=== PATIENT | male | born 1965 | race Caucasian/White ===

== ENCOUNTER 2016-04-13 18:16 | Emergency (ER) | payer OTHER ==
[~2016-04-13] VITALS: Ht 171.4 cm; Wt 93.0 kg
[~2016-04-13 18:16] MED LIST: AMLODIPINE10 MG PO; ATIVAN1 MG PO; KEFLEX500 M1 PO; LOSARTAN POTASS50 MG PO; METOPROLOL SUCC25 MG PO; MULTIVITAMIN1 TAB PO; NAPROSYN500 M1 PO; OMEPRAZOLE40 MG PO; VIBRAMYCIN 100100 MG PO; VITAMIN D35000 UNIT PO; VITAMIN D50000 IU PO; ZOFRAN ODT4 MG SL; ZOFRAN4 M1 PO
--- NOTE | 2016-04-13 19:57 | ED PSYCHIATRIC COMPLAINT ---
See Addendum History of Present Illness General Chief Complaint: ETOH/Drug Related Complaint Stated Complaint: DETOX Source: patient Exam Limitations: no limitations Vital Signs & Intake/Output Vital Signs & Intake/Output Vital Signs Date Time Temp Pulse Resp B/P Pulse O2 O2 Flow FiO2 Ox Delivery Rate 04/14 842 99.1 119 18 181/106 04/14 0843 99.1 119 18 181/106 04/14 0843 99.1 119 18 181/106 04/14 0810 99.1 119 18 181/106 99 Room Air 04/13 2347 97.9 98 18 148/89 04/13 2347 97.9 98 18 148/89 97 Room Air 04/13 2148 99.7 100 20 155/83 95 Room Air 04/13 2147 99.7 100 20 155/83 /08 1947 97.8 107 20 121/79 /08 1946 Room Air / 1841 97.8 107 20 121/79 95 Room Air ED Intake and Output 04/14 0000 04/13 1200 Intake Total 200 Output Total Balance 200 Intake, Oral 200 Patient 205 lb Weight Allergies Coded Allergies: NO KNOWN ALLERGIES (04/13/16) Reconcile Medications Amlodipine Besylate (Amlodipine) 10 MG TABLET 1 TAB PO DAILY BP (Reported) Doxepin HCl 10 MG CAPSULE 1 CAP PO QPM PSYCHIATRIC MED (Reported) Ergocalciferol (Vitamin D2) (Vitamin D2) 50,000 UNIT CAPSULE 1 CAP PO Q168 VITAMIN REPLACEMENT (Reported) Esomeprazole (Nexium) 40 MG CAPSULE.DR 1 CAP PO DAILY GERD (Reported) Halcinonide (Halog) 0.1 % CREAM..G. 1 AMBAR TOP BID PSORIASIS (Reported) Losartan Potassium 50 MG TABLET 1 TAB PO DAILY BP (Reported) Metoprolol Succinate 25 MG TAB.ER.24H 1 TAB PO DAILY BP (Reported) Naproxen (Naprosyn) 500 MG TABLET 1 TAB PO BID PRN PAIN Nystatin 100,000 UNIT/GRAM CREAM..G. 1 AMBAR TOP BID PSORIASIS (Reported) apply to affected area(s) Triamcinolone Acetonide 0.1 % CREAM..G. 1 APPLIC TOP BID PSORIASIS (Reported) Triage Note: TRIAGE: PT TO ER WITH FATHER C/C REQUESTING DETOX FROM ETOH. 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 DENIES HX OF WITHDRAWAL SEIZURES, STATES GETS SHAKES. DENIES OTHER SUBSTANCE USE/ABUSE, STATES "THE PARTNER I WAS WITH SMOKED MARAJUANA BUT I DON'T". -SI/HI. CALM/COOPERATIVE AT TRIAGE. AVOIDS EYE CONTACT. Triage Nurses Notes Reviewed? yes Onset: Gradual Duration: constant Timing: recent history Severity: severe Severity Numbers: 10 HPI: Patient is a 50-year-old male with a past medical history of alcohol dependency, hypertension, anxiety and GERD who presents emergency room with requests of alcohol detoxification. Patient's last detoxication was in [place] last year and is patient has been evaluated and admitted multiple occasions for detox patient. Denies any history of alcohol withdrawal seizures or delirium tremens Patient states that today he drank 3 of alcohol and a pint of vodka. Patient states that he drinks every day 1/5 OF vodka States that he smoked marijuana in the last month however denies any other illicit drugs. Denies any illness. Denies any fever, chills, abdominal pain nausea vomiting or auditory visual hallucinations. Patient denies any homicidal or suicidal ideations however does state that he is feeling depressed due to patient's alcohol dependency and states that he may be kicked out of his current residency due to not paying the rent. Patient currently is unemployed. (HANDY ABREU) Past History Travel History Traveled to [place] past 21 day No Medical History Any Pertinent Medical History? 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 No (HANDY ABREU) Review of Systems Review of Systems Constitutional: Reports: no symptoms. EENTM: Reports: no symptoms. Respiratory: Reports: no symptoms. Cardiovascular: Reports: no symptoms. GI: Reports: no symptoms. Genitourinary: Reports: no symptoms. Musculoskeletal: Reports: no symptoms. Skin: Reports: no symptoms. Neurological/Psychological: Reports: see HPI. Hematologic/Endocrine: Reports: no symptoms. Immunologic/Allergic: Reports: no symptoms. All Other Systems: Reviewed and Negative (HANDY ABREU) Physical Exam Physical Exam General Appearance: intoxicated Neurological/Psychiatric: no motor/sensory deficits Appearance/Memory/Insight: appropriate appearance, appropriate insight Behavoir/Eye Contact/Speech: cooperative, normal speech, good eye contact Thoughts/Hallucinations: no apparent hallucination Comments: HEENT: Normal EENT exam, Neck: Supple, no lymphadenopathy, normal range of motion without pain or tenderness Back: Nontender, no CVA tenderness. Cardiovascular: Regular rate and rhythms no murmurs rubs or gallops, normal JVP Respiratory: Chest nontender. No respiratory distress.breath sounds clear to auscultation bilaterally Abdomen: Soft, nontender nondistended, no appreciable organomegaly. Normal bowel sounds. No ascites Extremity: No edema, no calf tenderness to palpation, normal and equal pulses. Neuro: Alert oriented x3, motor sensory normal, Skin: No appreciable rash on exposed skin, skin is warm and dry. Psych: Mood and affect is normal, memory and judgment is normal. SAD PERSONS Done? patient not suicidal (HANDY ABREU) Progress Differential Diagnosis: drug intoxication, drug overdose, drug withdrawal, electrolyte abnormality, encephalitis, hypoglycemia, hypothyroidism, IC hem/mass /tumor, meningitis Plan of Care: Orders Procedure Date/time Status Regular Diet 04/14 B Active CASE MANAGEMENT CONSULT 04/14 601 Active Pathway - chart 04/14 408 Active CIWA 04/13 1953 Active URINE DRUG SCREEN FOR ER ONLY 04/13 1953 Complete URINALYSIS 04/13 1953 Complete LIPASE 04/13 1953 Complete ETHANOL 04/13 1953 Complete COMPREHENSIVE METABOLIC PANEL 04/13 1953 Complete CBC WITHOUT DIFFERENTIAL 04/13 1953 Complete AMYLASE 04/13 1953 Complete Current Medications Sig/Den Start time Last Medication Dose Stop Time Status Admin Lorazepam 2 MG Q2P PRN 04/14 414 AC (Ativan) Lorazepam 1 MG Q2P PRN 04/14 414 AC (Ativan) Laboratory Tests 04/14/16 0119: Serum Alcohol Cancelled 04/13/16 2133: Urine Opiates Screen < 100.00, Methadone Screen < 40, Barbiturate Screen < 60, Ur Phencyclidine Scrn < 6.00, Amphetamines Screen < 100, U Benzodiazepines Scrn < 85, Urine Cocaine Screen < 50, Urine Cannabis Screen 59.00 H, Urine Color YEL , Urine Clarity CLEAR, Urine pH 6.0, Ur Specific [place] 1.025, Urine Protein NEG, Urine Ketones NEG, Urine Nitrite NEG, Urine Bilirubin NEG, Urine Urobilinogen 0.2, Ur Leukocyte Esterase NEG, Ur Microscopic EXAM NOT REQUIRED, Urine Hemoglobin NEG, Urine Glucose NEG 04/13/16 2015: Anion Gap 14, Estimated GFR > 60, BUN/Creatinine Ratio 13.8, Glucose 115 H, Calcium 8.4, Total Bilirubin 0.4, AST 158 H, ALT 111 H, Alkaline Phosphatase 65, Total Protein 6.9, Albumin 3.8, Globulin 3.1, Albumin/Globulin Ratio 1.2, Amylase 55, Lipase 165, CBC w Diff NO MAN DIFF REQ, RBC 4.51 L, MCV 90.8, MCH 31.1 H, RDW 14.8 H, MPV 7.9, Gran % 49.8, Lymphocytes % 36.9, Monocytes % 11.8 H, Eosinophils % 1.1, Basophils % 0.4, Absolute Granulocytes 1.6, Absolute Lymphocytes 1.2, Absolute Monocytes 0.4, Absolute Eosinophils 0, Absolute Basophils 0, PUBS MCHC 34.3, Serum Alcohol 249.0 Patient currently is in no apparent distress denies any suicide or homicidal ideation however his alcohol levels are 250 it was noted by me that CIWA on multiple occasion patient only scored a 1 however approximately 0200 patient will be clinically sober and be reevaluated Discussed handOFF WITH Dr. Winter WHO IS aware (HANDY ABREU) Hand-Off Endorsed To: YUSRA WINTER MD Endorsed Time: 011 (HANDY ABREU) Hand-Off Endorsed To: HAMLET PAYTON DO Endorsed Time: 0700 Pending: consult (YUSRA WINTER MD) Departure Departure Disposition: STILL A PATIENT Condition: Stable Clinical Impression Primary Impression: Alcohol dependence Referrals: SCOTT JORGENSEN,RICKEY Stallworth (PCP/Family) Departure Forms: Customer Survey General Discharge Information (HANDY ABREU) Departure Comments 04/14/16, 6am.... pt feels tremulous, nauseaus, h/o in patient detox. Pt would like to be evaluated by case management for detox. (EVELINA JORGENSEN,YUSRA Nick) Departure Comments 04/14/16 9 AM The patient was signed out to me by Dr. Winter at 7 AM. He is requesting help with alcohol detox. He does have a significant history of high blood pressure and has been hypertensive and tachycardic. CIWA scores are being assessed. (TATA TURPIN,HAMLET Victoria)
[2016-04-13 20:36] LABS: ABSOLUTE BASOPHIL COUNT 0 /CUMM (0.0-0.2); ABSOLUTE EOSINOPHIL COUNT 0 /CUMM (0.0-0.7); ABSOLUTE GRANULOCYTE CT 1.6 /CUMM (1.4-6.5); ABSOLUTE LYMPH COUNT 1.2 /CUMM (1.2-3.4); ABSOLUTE MONOCYTE COUNT 0.4 /CUMM (0.10-0.60); BASOPHIL % 0.4 % (0.0-2.0); EOSINOPHIL % 1.1 % (0-5); GRANULOCYTE % 49.8 % (42.2-75.2); HEMATOCRIT 40.9 % (42-52); MEAN CORPUSCULAR HGB 31.1 PG (27.0-31.0); MEAN CORPUSCULAR HGB CONC 34.3 G/DL (33.0-37.0); MEAN CORPUSCULAR VOLUME 90.8 FL (80.0-94.0); MEAN PLATELET VOLUME 7.9 FL (7.4-10.4); PLATELET COUNT 146 /CUMM (130-400); RBC DISTRIBUTION WIDTH 14.8 % (11.5-14.5); RED BLOOD CELL CT 4.51 /CUMM (4.70-6.10); WHITE BLOOD CELL COUNT 3.3 /CUMM (4.8-10.8)
[2016-04-13] MEDS ORDERED: NYSTATIN15 G1 TOP (23:23)
[2016-04-13] MEDS ORDERED: VITAMIN D250000 UNIT PO (23:23)
[2016-04-13] MEDS ORDERED: NEXIUM40 M1 PO (23:26)
[2016-04-13] MEDS ORDERED: DOXEPIN HCL10 MG PO (23:26)
[2016-04-13] MEDS ORDERED: TRIAMCINOLONE A15 G1 TOP (23:28)
[2016-04-13] MEDS ORDERED: HALOG30 GM TOP (23:29)
[2016-04-14] MEDS ORDERED: AMLODIPINE BESY10 M1 PO (17:04)
[2016-04-14] MEDS ORDERED: COZAAR50 M1 PO (17:04)
[2016-04-14] MEDS ORDERED: TOPROL XL25 M2 PO (17:04)
[2016-04-14] MEDS ORDERED: DOXEPIN HCL10 MG PO (17:04)
[2016-04-14 17:15] VITALS: BP 189/100
--- NOTE | 2016-04-14 18:25 | ED PSYCH CRISIS CONSULTATION ---
Crisis Consult Basic Assessment Date of Consult: 04/14/16 Responsible Person/Accompanied By: self/father Insurance Authorization: Insurance #1: Insurance name: RADHA Lockett C&A Phone number: Policy number: [id number] Group number: Authorization number: ED Provider: Patient's ED Provider: HAMLET PAYTON DO Primary Care Physician: Patient's PCP: RICKEY CHAVEZ MD PCP's Current Psychiatrist: none Chief Complaint: ETOH/Drug Related Complaint Patient's Quote: I've had lots of drinking issues building up. Present Illness: Pt is a 50 yo male presented to [place] [facility] last evening requesting Alcohol Detox. Pt was accompanied by his father. Pt reports a long hx of ETOH abuse and several inpatient detoxes. Pt had been detoxed at [facility] in 2010, 2012 and has had 2 more recent detoxes in [facility]. 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 Pt reports drinking has increased to a fifth of vodka/day last few months. Pt didn't meet withdrawal symptoms criteria for medical admission. Pt reports depression due to continued losses and consequences of drinking but denies si/hi. Pt is alert, engaged, OX3, with mood/affect congruent. Patient's Address: [address] [place] [address] Other Phone Number: Who Do You Live With? Other (see notes) (parents and son) Family/Informants Interviewed: father Alonso [phone] Allergies - Coded Allergies: NO KNOWN ALLERGIES (04/13/16) Current Medications - Scheduled Medications Amlodipine Besylate (Amlodipine) 10 MG TABLET 1 TAB PO DAILY BP #90 (Reported ) Entered as Reported by ISAEL PA on 04/04/14 1349 Last Taken: At an unknown date and time Amlodipine Besylate 10 MG TABLET 1 TAB PO DAILY HTN #30 TAB Prescribed by HAMLET PAYTON DO on 04/14/16 Doxepin HCl 10 MG CAPSULE 1 CAP PO QPM PSYCHIATRIC MED #30 (Reported) Entered as Reported by VIKTOR BUSTILLO on 04/13/16 2326 Ergocalciferol (Vitamin D2) (Vitamin D2) 50,000 UNIT CAPSULE 1 CAP PO Q168 VITAMIN REPLACEMENT #8 (Reported) Entered as Reported by VIKTOR BUSTILLO on 04/13/162322 Esomeprazole (Nexium) 40 MG CAPSULE.DR 1 CAP PO DAILY GERD #30 (Reported) Entered as Reported by VIKTOR BUSTILLO on 04/13/16 232 Halcinonide (Halog) 0.1 % CREAM..G. 1 AMBAR TOP BID PSORIASIS #216 (Reported) Entered as Reported by VIKTOR BUSTILLO on 04/13/16 232 Losartan Potassium 50 MG TABLET 1 TAB PO DAILY BP #90 (Reported) Entered as Reported by ISAEL PA on 04/04/14 1349 Last Taken: At an unknown date and time Losartan Potassium (Cozaar) 50 MG TABLET 1 TAB PO DAILY HTN #30 TAB Prescribed by HAMLET PAYTON DO on 04/14/16 Metoprolol Succ XL (Toprol XL) 25 MG TAB.ER.24H 1 TAB PO DAILY HTN #30 Prescribed by HAMLET PAYTON DO on 04/14/16 Metoprolol Succinate 25 MG TAB.ER.24H 1 TAB PO DAILY BP #90 (Reported) Entered as Reported by ISAEL PA on 04/04/14 1349 Last Taken: At an unknown date and time Nystatin 100,000 UNIT/GRAM CREAM..G. 1 AMBAR TOP BID PSORIASIS #30 (Reported) Entered as Reported by VIKTOR BUSTILLO on 04/13/162322 Triamcinolone Acetonide 0.1 % CREAM..G. 1 APPLIC TOP BID PSORIASIS #454 ( Reported) Entered as Reported by VIKTOR BUSTILLO on 04/13/16 232 Scheduled PRN Medications Doxepin HCl 10 MG CAPSULE 1 CAP PO QPM PRN DEPRESSION #20 CAP Prescribed by HAMLET PAYTON DO on 04/14/16 Naproxen (Naprosyn) 500 MG TABLET 1 TAB PO BID PRN PAIN #15 Prescribed by MERCY SIMS on 07/13/15 Last Taken: At an unknown date and time Laboratory Results: Laboratory Tests 04/14/16 0119: Serum Alcohol Cancelled 04/13/163: Urine Opiates Screen < 100.00, Methadone Screen < 40, Barbiturate Screen < 60, Ur Phencyclidine Scrn < 6.00, Amphetamines Screen < 100, U Benzodiazepines Scrn < 85, Urine Cocaine Screen < 50, Urine Cannabis Screen 59.00 H, Urine Color YEL , Urine Clarity CLEAR, Urine pH 6.0, Ur Specific [place] 1.025, Urine Protein NEG, Urine Ketones NEG, Urine Nitrite NEG, Urine Bilirubin NEG, Urine Urobilinogen 0.2, Ur Leukocyte Esterase NEG, Ur Microscopic EXAM NOT REQUIRED, Urine Hemoglobin NEG, Urine Glucose NEG 04/13/16 2015: Anion Gap 14, Estimated GFR > 60, BUN/Creatinine Ratio 13.8, Glucose 115 H, Calcium 8.4, Total Bilirubin 0.4, AST 158 H, ALT 111 H, Alkaline Phosphatase 65, Total Protein 6.9, Albumin 3.8, Globulin 3.1, Albumin/Globulin Ratio 1.2, Amylase 55, Lipase 165, CBC w Diff NO MAN DIFF REQ, RBC 4.51 L, MCV 90.8, MCH 31.1 H, RDW 14.8 H, MPV 7.9, Gran % 49.8, Lymphocytes % 36.9, Monocytes % 11.8 H, Eosinophils % 1.1, Basophils % 0.4, Absolute Granulocytes 1.6, Absolute Lymphocytes 1.2, Absolute Monocytes 0.4, Absolute Eosinophils 0, Absolute Basophils 0, PUBS MCHC 34.3, Serum Alcohol 249.0 Past History Past Medical History Neurological: NONE EENT: NONE Cardiovascular: hypertension Respiratory: NONE Gastrointestinal: GASTRIC AND INTESTINAL ULCER Hepatic: NONE Renal: NONE Musculoskeletal: PSORAISIS Psychiatric: NONE Endocrine: NONE Blood Disorders: NONE Cancer(s): NONE 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 Wants to stop drinking Psychiatric Treatment History Psych Treatment Psychiatric Treatment No Inpatient Treatment No Outpatient Treatment No Substance Use/Abuse History Drug Use/Abuse Substances Used/Abused Yes Substance Used/Abused Alcohol First Use 30+ yrs ago Last Used yesterday How much used/taken fifth/vodka How often daily For how long last few months Substance Abuse Treatment Substance Abuse Treatment Past Substance Abuse TX Yes Inpatient Treatment Yes Outpatient Treatment Yes Location of Treatment -[facility] 2010, 2012; Detox in [facility] outpatient Reason for Treatment Alcohol Detox Response to Treatment unable to maintain sobriety Comments: several attempts at detox since 2010 but continues to relapse. Use progressing. Current Mental Status Mental Status Orientation: Person, Place, Situation Affect: Depressed Speech: WNL Neuro-vegetative: Appetite Decreased, Energy Decreased, Helpless, Loss of Interest Appearance Appearance- Dress/Hygiene: hospital scrubs. sitting upright/feet on the floor during interview. psoriasis on arms. Face blothcy. Behaviors Thought Process: WNL Thought Content: WNL Memory: WNL Insight: Fair SI/HI Risk Assessment Past Suicidal Ideation/Attempts No Current Suicidal Ideation/Att No Past Homicidal Ideation/Att: No Current Homicidal Ideation/Attempts No Degree of Intent: None Gravely Disabled: Poor Judgment Risk Factors: SA/MH hospitalized, substance abuse, poor impulse control, male Lethality Ratin PTSD Checklist PTSD Done? 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 Pt receiving last unemployment check next week. No longer able to afford apt. Car issues. depressed. Hopeless. Denies SI/HI. Wants help to stop etoh use. Departure Disposition Psych Medical Clearance Date: 04/14/16 Medically Cleared at: 1600 Time Started: 1605 Time Ended: 1645 Psychiatrist Consulted: Uriel Garcia MD Date Disposition Established: 04/14/16 Time Disposition Established: 1700 Plan for Disposition - Modality: Inpatient Detoxification Facility: [facility] Rationale for Disposition: Pt requesting ETOH Detox. Bed opening confirmed at [facility]. Pt's father will transport pt to [facility] for admission. Referrals SCOTT JORGENSEN,RICKEY Stallworth (PCP/Family)
== END 2016-04-14 18:00 | disposition other institution (70) ==
LOC: ERH 18:16
PROVIDERS: Physician Assistant
DX: F10.20 Alcohol dependence, uncomplicated (principal)
CPT/HCPCS: 80307; 81003; G0463; G0480; J3101

== ENCOUNTER 2016-04-29 17:44 | Emergency (ER) | payer OTHER ==
[~2016-04-29] VITALS: Ht 170.2 cm; Wt 88.5 kg
[~2016-04-29 17:44] MED LIST changes: +AMLODIPINE BESY10 M1 PO; +COZAAR50 M1 PO; +DOXEPIN HCL10 MG PO; +HALOG30 GM TOP; +NEXIUM40 M1 PO; +NYSTATIN15 G1 TOP; +TOPROL XL25 M2 PO; +TRIAMCINOLONE A15 G1 TOP; +VITAMIN D250000 UNIT PO
[2016-04-29 17:51] VITALS: BP 104/67
[2016-04-29] MEDS ORDERED: PERCOCET 5-3251 EACH PO (18:15)
[2016-04-29] MEDS ORDERED: BACTRIM DS TAB1 EACH PO (18:15)
[2016-04-29] MEDS ORDERED: AMOXICILLIN500 M3 PO (18:15)
--- NOTE | 2016-04-29 18:16 | ED SKIN/ALLERGY COMPLAINT ---
History of Present Illness General Chief Complaint: Skin Rash/ Abcess Stated Complaint: ?ABCESS UNDER ARMS Source: patient Exam Limitations: no limitations Vital Signs & Intake/Output Vital Signs & Intake/Output Vital Signs Date Time Temp Pulse Resp B/P Pulse O2 O2 Flow FiO2 Ox Delivery Rate 04/29 1751 98.2 128 16 104/67 97 Room Air Allergies Coded Allergies: NO KNOWN ALLERGIES (04/13/16) Reconcile Medications Amlodipine Besylate (Amlodipine) 10 MG TABLET 1 TAB PO DAILY BP (Reported) Amlodipine Besylate 10 MG TABLET 1 TAB PO DAILY HTN Amoxicillin 500 MG TABLET 1 TAB PO TID abscess Doxepin HCl 10 MG CAPSULE 1 CAP PO QPM PSYCHIATRIC MED (Reported) Doxepin HCl 10 MG CAPSULE 1 CAP PO QPM PRN DEPRESSION Ergocalciferol (Vitamin D2) (Vitamin D2) 50,000 UNIT CAPSULE 1 CAP PO Q168 VITAMIN REPLACEMENT (Reported) Esomeprazole (Nexium) 40 MG CAPSULE.DR 1 CAP PO DAILY GERD (Reported) Halcinonide (Halog) 0.1 % CREAM..G. 1 AMBAR TOP BID PSORIASIS (Reported) Losartan Potassium 50 MG TABLET 1 TAB PO DAILY BP (Reported) Losartan Potassium (Cozaar) 50 MG TABLET 1 TAB PO DAILY HTN Metoprolol Succ XL (Toprol XL) 25 MG TAB.ER.24H 1 TAB PO DAILY HTN Metoprolol Succinate 25 MG TAB.ER.24H 1 TAB PO DAILY BP (Reported) Naproxen (Naprosyn) 500 MG TABLET 1 TAB PO BID PRN PAIN Nystatin 100,000 UNIT/GRAM CREAM..G. 1 AMBAR TOP BID PSORIASIS (Reported) apply to affected area(s) Oxycodone HCl/Acetaminophen (Percocet 5-325 MG Tablet) 5 MG-325 MG TABLET 1-2 TAB PO Q6P PRN pain Sulfamethoxazole/Trimethoprim (Bactrim Ds Tablet) 800 MG-160 MG TABLET 1 TAB PO BID abscess Triamcinolone Acetonide 0.1 % CREAM..G. 1 APPLIC TOP BID PSORIASIS (Reported) Triage Note: COMPLAINSOF ABCESS UNDER L ARM FOR THE PAST 2-3 DAYS Triage Nurses Notes Reviewed? yes Onset: Abrupt Duration: day(s):, constant, continues in ED Timing: recent history Severity: severe Possible Factors: no cause identified No Modifying Factors: none HPI: 50-year-old male comes into emergency room for evaluation of pain and swelling to left armpit. Patient reports his been going on for a couple days. Patient reports she's had this on the right side before. Pain is sharp throbbing and severe. Denies any trauma to the area. Denies any fever or chills. Denies any other associated symptoms. (FRANCISCO RIVAS) Past History Travel History Traveled to [place] past 21 day No Medical History Any Pertinent Medical History? 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 No (FRANCISCO RIVAS) Review of Systems Review of Systems Constitutional: Reports: no symptoms. EENTM: Reports: no symptoms. Respiratory: Reports: no symptoms. Cardiovascular: Reports: no symptoms. GI: Reports: no symptoms. Genitourinary: Reports: no symptoms. Musculoskeletal: Reports: no symptoms. Skin: Reports: see HPI. Neurological/Psychological: Reports: no symptoms. Hematologic/Endocrine: Reports: no symptoms. Immunologic/Allergic: Reports: no symptoms. All Other Systems: Reviewed and Negative (FRANCISCO RIVAS) Physical Exam Physical Exam General Appearance: well developed/nourished, mild distress Head: atraumatic Eyes: Bilateral: normal appearance. Ears, Nose, Throat: normal ENT inspection, hearing grossly normal Neck: normal inspection Respiratory: normal breath sounds Back: normal inspection Extremities: Swelling to left armpit, no erythema, no warmth, hard, small, Neurologic/Psych: awake, alert, oriented x 3, normal mood/affect Skin: intact Skin Problem Location: see above Lymphatic: no anterior cervical josé miguel (FRANCISCO RIVAS) Progress Differential Diagnosis: abscess/cellulitis, allergic reaction, anaphylaxis, angioedema, asthma, contact dermatitis, lymphadenitis Plan of Care: 04/29/2016 6:19:32 PM At this time it is hard to distinguish whether this is an abscess versus a swollen lymph node. It is not warm or red or hot to touch. It is painful to touch. It is too small to be drained if it were an abscess. It is firm. It could be possible lymphadenopathy in which case I do not want to cut and open it up at this time. Patient started on oral antibiotics and instructed to use hot compresses to the area and return in 3 days for a wound check. Due to unclear nature as to exactly what this is patient will be treated symptomatically with oral antibiotics and patient will follow up with primary care doctor next week and return for wound check here on Monday. (KINJAL SMITH,FRANCISCO) Departure Departure Disposition: HOME OR SELF CARE Condition: Stable Clinical Impression Primary Impression: Swollen lymph nodes Referrals: SCOTT JORGENSEN,RICKEY Stallworth (PCP/Family) Additional Instructions: Take Bactrim and amoxicillin as prescribed. Take Percocet for pain. Return in 3 days for wound check. Return sooner if any other concerns worsening symptoms. Return if any increased swelling redness discharge fever or chills. Please go over all results of today's visit with your primary care doctor. Contact your primary care doctor to let them know you were here in the emergency room. There may be nonspecific findings which may not be related to your visit today here in the emergency room but may require further evaluation and chronic monitoring by your primary care doctor. If you had a laceration today the chance of foreign body always remains. You should follow-up with your primary care doctor for recheck in 3-5 days for a wound check. If you had an x-ray done there is a chance that a fracture could have been missed on initial read and you should follow-up with your primary care doctor for repeat x-rays if symptoms persist. If your blood pressure was elevated here in the emergency room please have rechecked by her primary care doctor within the next 48 hours by your primary care doctor. If you were prescribed a narcotic here in the emergency room or any type of controlled substances you're not allowed to drive while taking this medication or operate any type of heavy machinery. Narcotics can make you feel lightheaded dizziness nausea and can cause constipation. You may need to cigar packer and picker a stool softener. Thank you for choosing emergency room. Please return to the emergency room immediately if you have any other concerns worsening of symptoms. Departure Forms: Customer Survey General Discharge Information Prescriptions: Current Visit Scripts Amoxicillin 1 TAB PO TID #30 TAB Sulfamethoxazole/Trimethoprim (Bactrim Ds Tablet) 1 TAB PO BID #20 TAB Oxycodone HCl/Acetaminophen (Percocet 5-325 MG Tablet) 1-2 TAB PO Q6P PRN pain #15 TAB (FRANCISCO RIVAS) PA/BENCH CHEMIST Co-Sign Statement Statement: ED Attending supervision documentation- [] I saw and evaluated the patient. I have also reviewed all the pertinent lab results and diagnostic results. I agree with the findings and the plan of care as documented in the PA's/BENCH CHEMIST's documentation. [X] I have reviewed the ED Record and agree with the PA's/BENCH CHEMIST's documentation. [] Additions or exceptions (if any) to the PAs/BENCH CHEMIST's note and plan are summarized below: [] (RYAN JORGENSEN,LUCIANA Kasper)
== END 2016-04-29 18:29 ==
LOC: ERH 17:44
DX: R22.32 Localized swelling, mass and lump, left upper limb (principal)

== ENCOUNTER 2016-05-02 11:48 | Emergency (ER) | payer OTHER ==
[~2016-05-02] VITALS: Ht 172.7 cm; Wt 93.0 kg
[~2016-05-02 11:48] MED LIST changes: +AMOXICILLIN500 M3 PO; +BACTRIM DS TAB1 EACH PO; +PERCOCET 5-3251 EACH PO
--- NOTE | 2016-05-02 13:12 | ED SKIN/ALLERGY COMPLAINT ---
See Addendum History of Present Illness General Chief Complaint: General Adult Stated Complaint: L ARMPIT PAIN Source: patient Exam Limitations: no limitations Vital Signs & Intake/Output Vital Signs & Intake/Output Vital Signs Date Time Temp Pulse Resp B/P Pulse O2 O2 Flow FiO2 Ox Delivery Rate 05/02 1518 78 14 140/78 98 Room Air 05/02 1150 97.9 91 20 136/81 99 Room Air ED Intake and Output 05/03 0000 05/02 1200 Intake Total 0 Output Total Balance 0 Intake, Oral 0 Patient 205 lb Weight Allergies Coded Allergies: NO KNOWN ALLERGIES (04/13/16) Reconcile Medications Amlodipine Besylate 10 MG TABLET 1 TAB PO DAILY HTN Amoxicillin 500 MG TABLET 1 TAB PO TID abscess Doxepin HCl 10 MG CAPSULE 1 CAP PO QPM PSYCHIATRIC MED (Reported) Doxepin HCl 10 MG CAPSULE 1 CAP PO QPM PRN DEPRESSION Ergocalciferol (Vitamin D2) (Vitamin D2) 50,000 UNIT CAPSULE 1 CAP PO Q168 VITAMIN REPLACEMENT (Reported) Esomeprazole (Nexium) 40 MG CAPSULE.DR 1 CAP PO DAILY GERD (Reported) Halcinonide (Halog) 0.1 % CREAM..G. 1 AMBAR TOP BID PSORIASIS (Reported) Losartan Potassium (Cozaar) 50 MG TABLET 1 TAB PO DAILY HTN Metoprolol Succ XL (Toprol XL) 25 MG TAB.ER.24H 1 TAB PO DAILY HTN Naproxen (Naprosyn) 500 MG TABLET 1 TAB PO BID PRN PAIN Nystatin 100,000 UNIT/GRAM CREAM..G. 1 AMBAR TOP BID PSORIASIS (Reported) apply to affected area(s) Oxycodone HCl/Acetaminophen (Percocet 5-325 MG Tablet) 5 MG-325 MG TABLET 1 TAB PO Q6P PRN pain Sulfamethoxazole/Trimethoprim (Bactrim Ds Tablet) 800 MG-160 MG TABLET 1 TAB PO BID abscess Triamcinolone Acetonide 0.1 % CREAM..G. 1 APPLIC TOP BID PSORIASIS (Reported) Triage Note: PT TO ED C/O ABSCESS UNDER LEFT ARM PIT. PT WAS SEEN IN ED 04/29 AND SENT HOME WITH PO ABX AND PAIN MEDS. HAS BEEN TAKING RX'S PRESCRIBED. PT STATES IT IS NOT GETTING ANY BETTER. AFEBRILE. PT IS OUT OF PAIN MEDS. Triage Nurses Notes Reviewed? yes HPI: Patient presents for left armpit pain after being seen 3 days ago. He is being treated with antibiotics but he doesn't seem to be getting any better. He has had prior episodes similar to this that needed to be drained. Patient's pain has been constant severe and getting worse. It continues here in the emergency department. It is worse with movement of the left arm and with palpation of the area. He denies any associated fever or cold symptoms. There has been no drainage from the area. Past History Travel History Traveled to [place] past 21 day No Medical History Any Pertinent Medical History? 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 No Review of Systems Review of Systems Constitutional: Reports: no symptoms. EENTM: Reports: no symptoms. Respiratory: Reports: no symptoms. Cardiovascular: Reports: no symptoms. GI: Reports: no symptoms. Genitourinary: Reports: no symptoms. Musculoskeletal: Reports: no symptoms. Skin: Reports: see HPI. Neurological/Psychological: Reports: no symptoms. Hematologic/Endocrine: Reports: no symptoms. Immunologic/Allergic: Reports: no symptoms. All Other Systems: Reviewed and Negative Physical Exam Physical Exam General Appearance: SEE BELOW Progress Differential Diagnosis: abscess/cellulitis Plan of Care: See discharge instructions Comments: 05/02/2016 2:52:38 PM I&D performed by me Departure Departure Disposition: HOME OR SELF CARE Condition: Stable Clinical Impression Primary Impression: Cutaneous abscess of axilla Qualifiers: Laterality: left Qualified Code: L02.412 - Cutaneous abscess of left axilla Secondary Impressions: Encounter for incision and drainage procedure Referrals: RICKEY CHAVEZ MD (PCP/Family) Additional Instructions: Continue your current antibiotic prescription. Add Percocet if necessary for pain. Return in 2 days to have the wick removed and the area reevaluated (you may see your primary care physician if he or she feels comfortable with this). Return if Fever or shaking chills or other concerns or worsening. Thank you for choosing the [facility] Emergency Department for your care. It was a pleasure to serve you today. Christos Park M.D. [facility] Departure Forms: Customer Survey General Discharge Information Prescriptions: Current Visit Scripts Oxycodone HCl/Acetaminophen (Percocet 5-325 MG Tablet) 1 TAB PO Q6P PRN pain #10 TAB Procedures Additional Procedures Additional Procedures: INCISION AND DRAINAGE: pATIENT'S LEFT AXILLA DRAPED AND PREPPED IN THE USUAL MANNER AND ANESTHETIZED WITH LOCAL TITRATION OF 2% LIDOCAINE. a #15 BLADE WAS USED TO INCISE AN AREA OF FLUCTUANCE WITH RELEASE OF PURULENT DRAINAGE. tHE AREA WAS IRRIGATED AND LOCULATIONS WERE FREED USING DISSECTION WITH A SCISSOR. a WICK WAS PLACED.
[2016-05-02] MEDS ORDERED: PERCOCET 5-3251 EACH PO (14:54)
[2016-05-02 15:18] VITALS: BP 140/78
== END 2016-05-02 15:15 ==
LOC: ERH 11:48
DX: L02.412 Cutaneous abscess of left axilla (principal)
CPT/HCPCS: J2001

== ENCOUNTER 2016-06-02 13:35 | Emergency (ER) | payer OTHER ==
[~2016-06-02] VITALS: Ht 170.2 cm; Wt 93.0 kg
[2016-06-02] MEDS ORDERED: PERCOCET 5-3251 EACH PO (14:56)
[2016-06-02] MEDS ORDERED: AMOXICILLIN500 M2 PO (14:56)
[2016-06-02] MEDS ORDERED: BACTRIM DS TAB1 EACH PO (14:56)
--- NOTE | 2016-06-02 14:57 | ED SKIN/ALLERGY COMPLAINT ---
History of Present Illness General Chief Complaint: Skin Rash/ Abcess Stated Complaint: "I HAVE SOMETHING IN MY LEG" Source: patient Exam Limitations: no limitations Vital Signs & Intake/Output Vital Signs & Intake/Output Vital Signs Date Time Temp Pulse Resp B/P Pulse O2 O2 Flow FiO2 Ox Delivery Rate 06/02 1508 98.4 90 18 144/87 98 Room Air Room Air 06/02 1344 98.2 120 20 153/97 97 Room Air Allergies Coded Allergies: NO KNOWN ALLERGIES (04/13/16) Reconcile Medications Amlodipine Besylate 10 MG TABLET 1 TAB PO DAILY HTN Amoxicillin 500 MG TABLET 1 TAB PO TID abscess Amoxicillin 500 MG CAPSULE 1 CAP PO TID abscess Doxepin HCl 10 MG CAPSULE 1 CAP PO QPM PSYCHIATRIC MED (Reported) Doxepin HCl 10 MG CAPSULE 1 CAP PO QPM PRN DEPRESSION Ergocalciferol (Vitamin D2) (Vitamin D2) 50,000 UNIT CAPSULE 1 CAP PO Q168 VITAMIN REPLACEMENT (Reported) Esomeprazole (Nexium) 40 MG CAPSULE.DR 1 CAP PO DAILY GERD (Reported) Halcinonide (Halog) 0.1 % CREAM..G. 1 AMBAR TOP BID PSORIASIS (Reported) Losartan Potassium (Cozaar) 50 MG TABLET 1 TAB PO DAILY HTN Metoprolol Succ XL (Toprol XL) 25 MG TAB.ER.24H 1 TAB PO DAILY HTN Naproxen (Naprosyn) 500 MG TABLET 1 TAB PO BID PRN PAIN Nystatin 100,000 UNIT/GRAM CREAM..G. 1 AMBAR TOP BID PSORIASIS (Reported) apply to affected area(s) Oxycodone HCl/Acetaminophen (Percocet 5-325 MG Tablet) 5 MG-325 MG TABLET 1 TAB PO Q6P PRN pain Oxycodone HCl/Acetaminophen (Percocet 5-325 MG Tablet) 5 MG-325 MG TABLET 1 TAB PO Q6H PRN PAIN Sulfamethoxazole/Trimethoprim (Bactrim Ds Tablet) 800 MG-160 MG TABLET 1 TAB PO BID abscess Sulfamethoxazole/Trimethoprim (Bactrim Ds Tablet) 800 MG-160 MG TABLET 1 TAB PO BID infection Triamcinolone Acetonide 0.1 % CREAM..G. 1 APPLIC TOP BID PSORIASIS (Reported) Triage Note: PT C/O "CYST" ON LEFT THIGH. UNABLE TO VISUALIZE IN TRIAGE Triage Nurses Notes Reviewed? yes HPI: Patient with complaints of a"cyst"the left proximal medial thigh region. It is getting more swollen painful red and tender. Symptoms are moderate to severe with palpation. Also pain with walking as his legs are rubbery together. He denies any fever or flulike illness. HX OF abscess in the past. no fever, or flu like illness. has surrounding redness that is spreading this am. Past History Travel History Traveled to [place] past 21 day No Medical History Any Pertinent Medical History? 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 No Review of Systems Review of Systems Constitutional: Reports: see HPI. EENTM: Reports: no symptoms. Respiratory: Reports: no symptoms. Cardiovascular: Reports: no symptoms. GI: Reports: no symptoms. Genitourinary: Reports: no symptoms. Musculoskeletal: Reports: no symptoms. Skin: Reports: see HPI. Neurological/Psychological: Reports: no symptoms. Hematologic/Endocrine: Reports: no symptoms. Immunologic/Allergic: Reports: no symptoms. All Other Systems: Reviewed and Negative Physical Exam Physical Exam General Appearance: well developed/nourished Comments: Well-developed well-nourished no apparent distress. HEENT: Atraumatic, extraocular motion intact Neck: Supple, no lymphadenopathy Back: Nontender Respiratory: No respiratory distress Extremities: No edema, full range of motion Neuro: Alert and oriented x3 Psych: Mood affect normal, normal memory normal judgment. Skin: Warm and dry, no rash on exposed skin Left medial thigh proximal aspect with fluctuant abscess with surrounding erythema warmth and exquisite tenderness. Progress Differential Diagnosis: abscess/cellulitis, allergic reaction, anaphylaxis, angioedema, asthma, contact dermatitis, drug reaction, erythema multiforme, lyme disease, meningitis/sepsis, piyriasis rosea, RMSF, scarlet fever, shingles, syphilis/gonococcemia, toxic shock syndrome, urticaria Plan of Care: Orders Procedure Date/time Status EXTREMETIES CULTURE 06/02 1455 Active Microbiology 06/02 1520 EXTREMITIE: Culture & Sensitivity - RECD 06/02 1520 EXTREMITIE: Gram Stain - RECD Comments: Antibiotics recommended. Amoxicillin and Bactrim. Culture sent. Return with worsening symptoms. Warm compresses recommended Departure Departure Disposition: HOME OR SELF CARE Condition: Stable Clinical Impression Primary Impression: Abscess of groin, left Referrals: SCOTT JORGENSEN,RICKEY Stallworth (PCP/Family) Additional Instructions: Take antibiotics as directed for infection, warm compresses and sit in a warm bath to help drain the abscess. Return in the next 2-3 days if you're feeling worsening pain, redness, swelling, fever or flulike illness Departure Forms: Customer Survey General Discharge Information Prescriptions: Current Visit Scripts Amoxicillin 1 CAP PO TID #30 CAP Sulfamethoxazole/Trimethoprim (Bactrim Ds Tablet) 1 TAB PO BID #20 TAB Oxycodone HCl/Acetaminophen (Percocet 5-325 MG Tablet) 1 TAB PO Q6H PRN PAIN #12 TAB Procedures Incision and Drainage Site: LEFT MEDIAL PROXIMAL THIGH Blade Size: 11 I & D Procedure: Yes: betadine prep, sterile drapes applied, sterile dressing applied. No: wick placed. Progress: Anesthetized with 5 mL of 2% lidocaine with epinephrine after sterile prep. 11 blade scalpel and incised the abscess and small amount of purulent discharge was expressed. This was cultured. A Madison clamp is used to break up any loculations. Wound was irrigated. Sterile dressing applied. Patient tolerated well without complications.
[2016-06-02 15:08] VITALS: BP 144/87
== END 2016-06-02 15:09 ==
LOC: ERH 13:35
DX: L02.416 Cutaneous abscess of left lower limb (principal)
CPT/HCPCS: 87070

== ENCOUNTER 2016-09-11 18:56 | Emergency (ER) | payer OTHER ==
[~2016-09-11 18:56] MED LIST changes: +AMOXICILLIN500 M2 PO
[2016-09-11] MEDS ORDERED: VALACYCLOVIR1000 MG PO (19:24)
--- NOTE | 2016-09-11 19:27 | ED PSYCHIATRIC COMPLAINT ---
History of Present Illness General Chief Complaint: Psychiatric Related Complaint Stated Complaint: VANCE SHAVER EVAL, +SI, ETOH Source: patient Exam Limitations: intoxication Vital Signs & Intake/Output Vital Signs & Intake/Output Vital Signs Date Time Temp Pulse Resp B/P B/P Pulse O2 O2 Flow FiO2 Mean Ox Delivery Rate 09/12 0911 98.8 101 18 165/89 97 09/12 0645 98.2 116 16 169/80 97 Room Air 09/12 0310 98.8 108 18 124/78 96 Room Air 09/11 1912 96 Room Air 09/11 1859 98.4 112 16 116/68 98 Room Air Allergies Coded Allergies: NO KNOWN ALLERGIES (04/13/16) Reconcile Medications Amlodipine Besylate 10 MG TABLET 1 TAB PO DAILY HTN Doxepin HCl 10 MG CAPSULE 1 CAP PO QPM PSYCHIATRIC MED (Reported) Ergocalciferol (Vitamin D2) (Vitamin D2) 50,000 UNIT CAPSULE 1 CAP PO 2XW VITAMIN REPLACEMENT (Reported) Esomeprazole (Nexium) 40 MG CAPSULE.DR 1 CAP PO DAILY GERD (Reported) Losartan Potassium (Cozaar) 50 MG TABLET 1 TAB PO DAILY HTN Metoprolol Succ XL (Toprol XL) 25 MG TAB.ER.24H 1 TAB PO DAILY HTN Naproxen (Naprosyn) 500 MG TABLET 1 TAB PO BID PRN PAIN Valacyclovir HCl (Valacyclovir) 1,000 MG TABLET 1 TAB PO TID ANTIVIRAL ( Reported) Triage Note: 51 M BIBA FROM HOME AFTER DOMESTIC DISPUTE WITH PARENTS WITH WHOM HE LIVES, WHO REPORT HE HAD MADE SUICIDAL STATEMENTS AT HOME AFTER CONSUMING 2 PINTS OF VODKA. ARRIVES WITH SLURRED SPEECH, ENDORSES MULTIPLE RECENT PSYCHOSOCIAL STRESSORS AND STATES "IT'S ALL JUST TOO MUCH." DENIES SI/HI TO THIS RN AND STATES "I HAVE NO INTENT TO TAKE MY LIFE" AND DENIES PLAN. DENIES ILLICIT DRUG USE. WANDED BY SECURITY ON ARRIVAL. Triage Nurses Notes Reviewed? yes Onset: Gradual Duration: hour(s): Timing: recent history Severity: moderate Associated Symptoms: alcohol intoxication HPI: 51 yo gentleman brought in by the police after a family altercation. He reports that he drank 1 pint of vodka today. "I am getting up there... usually 1/2 pint to 1 pint a day.... but I can stop anytime." He notes that when he stops drinking he has no withdrawal symptoms. (EVELINA JORGENSEN,YUSRA Nick) Past History Travel History Traveled to [place] past 21 day No Medical History Any Pertinent Medical History? 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 No (EVELINA JORGENSEN,YUSRA Nick) Review of Systems Review of Systems Constitutional: Reports: no symptoms. EENTM: Reports: no symptoms. Respiratory: Reports: no symptoms. Cardiovascular: Reports: no symptoms. GI: Reports: no symptoms. Genitourinary: Reports: no symptoms. Musculoskeletal: Reports: no symptoms. Skin: Reports: no symptoms. Neurological/Psychological: Reports: no symptoms. Hematologic/Endocrine: Reports: no symptoms. Immunologic/Allergic: Reports: no symptoms. All Other Systems: Reviewed and Negative (EVELINA JORGENSEN,YUSRA Nick) Physical Exam Physical Exam General Appearance: well developed/nourished, mild distress Head: atraumatic Eyes: Bilateral: PERRL, EOMI. Ears, Nose, Throat: normal pharynx Neck: normal inspection, supple, full range of motion Respiratory: normal breath sounds, chest non-tender, no respiratory distress, quiet respiration, lungs clear Cardiovascular: regular rate/rhythm Gastrointestinal: normal bowel sounds, soft, non-tender, no organomegaly Neurological/Psychiatric: no motor/sensory deficits, awake, calm Appearance/Memory/Insight: appropriate insight Behavoir/Eye Contact/Speech: cooperative Thoughts/Hallucinations: no apparent hallucination Skin: intact SAD PERSONS SAD PERSONS Response Value Male Sex? yes 1 Age <19 or >45 years? yes 1 Depression/Hopelessness? yes 2 Excessive Ethanol/Drug Use? yes 1 Rational Thinking Loss? yes 2 Single//? yes 1 Social Support? has no support 1 Total 9 SAD PERSONS Done? yes (EVELINA JORGENSEN,YUSRA Nick) Progress Differential Diagnosis: depression, si vs other. Plan of Care: Orders Procedure Date/time Status Regular Diet 09/12 B Active Continuous Observation Monitor 09/12 1900 Active Continuous Observation Monitor 09/12 1500 Active Continuous Observation Monitor 09/12 1100 Active Continuous Observation Monitor 09/12 0700 Active EKG 09/12 0239 Active Continuous Observation Monitor 09/11 1928 Active URINE DRUG SCREEN FOR ER ONLY 09/11 1928 Complete ETHANOL 09/11 1928 Complete COMPREHENSIVE METABOLIC PANEL 09/11 1928 Complete CBC WITHOUT DIFFERENTIAL 09/11 1928 Complete ED CRISIS PSYCH CONSULT 09/11 1928 Active Laboratory Tests 09/11/16 2246: Urine Opiates Screen < 100.00, Methadone Screen < 40, Barbiturate Screen < 60, Ur Phencyclidine Scrn < 6.00, Amphetamines Screen < 100, U Benzodiazepines Scrn < 85, Urine Cocaine Screen 255, Urine Cannabis Screen < 5.00 09/11/16 1440: Anion Gap 15, Estimated GFR > 60, BUN/Creatinine Ratio 10.8, Glucose 103 H, Calcium 9.0, Total Bilirubin 0.4, AST 41, ALT 42, Alkaline Phosphatase 53, Total Protein 6.9, Albumin 4.1, Globulin 2.8, Albumin/Globulin Ratio 1.5, CBC w Diff NO MAN DIFF REQ, RBC 4.93, MCV 92.8, MCH 31.0, RDW 14.3, MPV 7.6, Gran % 59.7, Lymphocytes % 30.8, Monocytes % 7.1, Eosinophils % 2.0, Basophils % 0.4, Absolute Granulocytes 3.2, Absolute Lymphocytes 1.7, Absolute Monocytes 0.4, Absolute Eosinophils 0.1, Absolute Basophils 0, PUBS MCHC 33.4, Serum Alcohol 238.0 Initial ED EKG: normal axis, normal intervals, normal p-waves, normal QRS complex, normal sinus rhythm, with background artifact Hand-Off Endorsed To: YANG MARTÍNEZ MD Endorsed Time: 699 Pending: consult (EVELINA JORGENSEN,YUSRA Nick) Comments: Cleared by psychiatry for discharge (YANG MARTÍNEZ MD) Departure Departure Disposition: STILL A PATIENT Condition: Stable Clinical Impression Primary Impression: Alcohol intoxication Secondary Impressions: Cocaine abuse Referrals: RICKEY CHAVEZ MD (PCP/Family) (YUSRA HOYT MD) Departure Time of Disposition: 1210 Additional Instructions: Follow up with the recommendations of the wine cellar worker Departure Forms: General Discharge Information (MADELINE MARTÍNEZ MDE)
[2016-09-11 19:49] LABS: ABSOLUTE BASOPHIL COUNT 0 /CUMM (0.0-0.2); ABSOLUTE EOSINOPHIL COUNT 0.1 /CUMM (0.0-0.7); ABSOLUTE GRANULOCYTE CT 3.2 /CUMM (1.4-6.5); ABSOLUTE LYMPH COUNT 1.7 /CUMM (1.2-3.4); ABSOLUTE MONOCYTE COUNT 0.4 /CUMM (0.10-0.60); BASOPHIL % 0.4 % (0.0-2.0); GRANULOCYTE % 59.7 % (42.2-75.2); HEMATOCRIT 45.8 % (42-52); MEAN CORPUSCULAR HGB CONC 33.4 G/DL (33.0-37.0); MEAN CORPUSCULAR VOLUME 92.8 FL (80.0-94.0); MEAN PLATELET VOLUME 7.6 FL (7.4-10.4); PLATELET COUNT 184 /CUMM (130-400); RBC DISTRIBUTION WIDTH 14.3 % (11.5-14.5); RED BLOOD CELL CT 4.93 /CUMM (4.70-6.10); WHITE BLOOD CELL COUNT 5.4 /CUMM (4.8-10.8)
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
[2016-09-12 12:00] VITALS: BP 158/74
== END 2016-09-12 12:46 ==
LOC: ERH 18:56
PROVIDERS: Pediatrics
DX: F10.129 Alcohol abuse with intoxication, unspecified (principal); F14.10 Cocaine abuse, uncomplicated
CPT/HCPCS: 80307; 93005; 93010; G0463; G0480

== ENCOUNTER 2017-07-17 10:49 | Inpatient (IN) | payer OTHER ==
[~2017-07-17] VITALS: Ht 171.4 cm; Wt 103.0 kg
[2017-07-17] VITALS (9 sets, daily range): BP systolic 160–184; BP diastolic 90–114
[~2017-07-17 10:49] MED LIST changes: +VALACYCLOVIR1000 MG PO
[2017-07-17] MEDS ORDERED: TRAZODONE HCL100 M1 PO (11:32)
[2017-07-17] MEDS ORDERED: VENLAFAXINE HCL50 MG PO (11:32)
[2017-07-17] MEDS ORDERED: PANTOPRAZOLE SO40 M1 PO (11:33)
[2017-07-17] MEDS ORDERED: LOPRESSOR50 M1 PO (11:34)
[2017-07-17 11:37] LABS: ABSOLUTE BASOPHIL COUNT 0 /CUMM (0.0-0.2); ABSOLUTE EOSINOPHIL COUNT 0 /CUMM (0.0-0.7); ABSOLUTE GRANULOCYTE CT 4.4 /CUMM (1.4-6.5); ABSOLUTE LYMPH COUNT 0.7 /CUMM (1.2-3.4); ABSOLUTE MONOCYTE COUNT 0.3 /CUMM (0.10-0.60); BASOPHIL % 0.3 % (0.0-2.0); EOSINOPHIL % 0.6 % (0-5); GRANULOCYTE % 80.3 % (42.2-75.2); HEMATOCRIT 48.8 % (42-52); MEAN CORPUSCULAR HGB 31.1 PG (27.0-31.0); MEAN CORPUSCULAR HGB CONC 34.5 G/DL (33.0-37.0); MEAN CORPUSCULAR VOLUME 90.1 FL (80.0-94.0); MEAN PLATELET VOLUME 7.6 FL (7.4-10.4); PLATELET COUNT 169 /CUMM (130-400); RBC DISTRIBUTION WIDTH 14.6 % (11.5-14.5); RED BLOOD CELL CT 5.42 /CUMM (4.70-6.10); WHITE BLOOD CELL COUNT 5.5 /CUMM (4.8-10.8)
--- NOTE | 2017-07-17 12:47 | ED CARDIAC/CP/PALPITATIONS ---
History of Present Illness General Chief Complaint: General Adult Stated Complaint: HIGH BP Source: patient Exam Limitations: no limitations Vital Signs & Intake/Output Vital Signs & Intake/Output Vital Signs Date Time Temp Pulse Resp B/P B/P Pulse O2 O2 Flow FiO2 Mean Ox Delivery Rate 07/17 1645 107 18 176/100 07/17 1531 111 18 180/100 07/17 1521 111 180/100 07/17 1521 111 18 180/100 96 Room Air 07/17 1445 108 18 170/106 98 Room Air 07/17 1433 111 18 174/102 07/17 1422 111 174/102 07/17 1411 98.7 111 18 174/102 96 Room Air Room Air 07/17 1206 110 160/98 07/17 1151 110 18 160/98 98 Room Air 07/17 1135 99.7 118 20 182/110 07/17 1135 98 Room Air 07/17 1054 99.7 113 15 182/110 98 Room Air Room Air Allergies Coded Allergies: No Known Allergies (07/17/17) Reconcile Medications Amlodipine Besylate 10 MG TABLET 1 TAB PO DAILY HTN Losartan Potassium (Cozaar) 50 MG TABLET 1 TAB PO DAILY HTN Metoprolol Tartrate (Lopressor) 50 MG TABLET 1 TAB PO BID HEART (Reported) Pantoprazole Sodium 40 MG TABLET.DR 1 TAB PO DAILY GI (Reported) Trazodone HCl 100 MG TABLET 1 TAB PO QPM SLEEP (Reported) Venlafaxine HCl 50 MG TABLET 1 TAB PO DAILY MENTAL HEALTH (Reported) Triage Note: PT TO ED FOR LIGHTHEADEDNESS AND SUBECTIVE HIGH BLOOD PRESSURE. PT 182/110 MANUALLY IN TRIAGE. PT DENIES CHEST PAIN, SOB, NAUSEA. PT IS A DAILY DRINKER APPROX 1 PINT OF VODKA A DAY, LAST DRINK YESTERDAY. PT APPEARS FLUSHED, DIAPHORETIC AND ANXIOUS IN TRIAGE. REPORTS SUBJECTIVE HEART RATE 140 AT HOME. 113 IN TRIAGE. Triage Nurses Notes Reviewed? yes Onset: Abrupt Duration: day(s): (1), constant, continues in ED, getting worse Timing: single episode today Quality/Severity: moderate, tightness Location: central Radiation: no radiation Activities at Onset: none Nitro Today/Relief: no nitro taken today Aspirin Today: no aspirin today Associated Symptoms: dizziness, fatigue, ANXIETY HPI: 51-year-old male past medical history of hypertension, alcohol dependence, psoriasis remembers her evaluation of elevated blood pressure. Patient states that he woke up today and felt like his blood pressure was high. He states that he felt lightheaded and dizzy and chest tightness. He states that he has felt this way in the past when his blood pressure is high. He takes all of his blood pressure medicine as directed. Last dose was today this morning. He states that the chest tightness located in the center of his chest does not radiate. Does not get worse on exertion. He also reports associated anxiety because he is going to be going to retirement next week. He states that he drinks about a pint of vodka daily his last drink was last night. He does report a history of alcohol withdrawal seizures. No drug use. No shortness of breath hemoptysis or lower extremity edema. No coughing headache or changes in vision. NO suicidal or homicidal ideation. Patient states that he does not want to be detoxed from alcohol just wants to get his blood pressure under control. (Cm Cuello) Past History Travel History Traveled to [place] past 21 day No Medical History Any Pertinent Medical History? 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 No (Cm Cuello) Review of Systems Review of Systems Constitutional: Reports: no symptoms. EENTM: Reports: no symptoms. Respiratory: Reports: no symptoms. Cardiovascular: Reports: see HPI, chest pain. GI: Reports: no symptoms. Genitourinary: Reports: no symptoms. Musculoskeletal: Reports: no symptoms. Skin: Reports: no symptoms. Neurological/Psychological: Reports: see HPI (DIZZY, LIGHTHEADED). Hematologic/Endocrine: Reports: no symptoms. Immunologic/Allergic: Reports: no symptoms. All Other Systems: Reviewed and Negative (Cm Cuello) Physical Exam Physical Exam General Appearance: well developed/nourished, no apparent distress, alert, awake , anxious, obese Head: atraumatic, normal appearance Eyes: Bilateral: normal appearance, PERRL, EOMI. Ears, Nose, Throat: normal pharynx, normal ENT inspection, hearing grossly normal Neck: normal inspection, supple, full range of motion Respiratory: normal breath sounds, chest non-tender, no respiratory distress, lungs clear Cardiovascular: regular rate/rhythm, normal peripheral pulses Peripheral Pulses: 2+ radial (R), 2+ radial (L) Gastrointestinal: soft, non-tender Back: normal inspection, normal range of motion, no vertebral tenderness Extremities: normal inspection, normal range of motion, no edema Neurologic/Psych: no motor/sensory deficits, awake, alert, oriented x 3, normal gait, normal mood/affect Skin: intact, normal color, warm/dry Lymphatic: no anterior cervical josé miguel Core Measures ACS in differential dx? No CVA/TIA Diagnosis No Sepsis Present: No Sepsis Focused Exam Completed? No (Cm Cuello) Progress Differential Diagnosis: AMI, aortic dissection, atrial fibrillation, costochondritis, hyperthyroid, musculoskeletal pain, pancreatitis, pericarditis, pneumonia, pneumothorax, PSVT, pulmonary embolism, PUD/GERD, PVCs/PACs, rib fracture, sepsis, unstable angina, V-fib/V-Tach, WPW syndrome Plan of Care: Orders Procedure Date/time Status Heart Healthy Diet 07/18 B Active ED Holding Orders 07/17 1749 Active Admit to inpatient 07/17 1749 Active Vital Signs 07/17 1749 Active Code Status 07/17 1749 Active TROPONIN LEVEL 07/17 1530 Complete EKG 07/17 1530 Active Add-on Test (ER Only) 07/17 1201 Active CIWA 07/17 1201 Active ETHANOL 07/17 1131 Complete URINE DRUG SCREEN FOR ER ONLY 07/17 1120 Complete URINALYSIS 07/17 1120 Complete TSH REFLEX 07/17 1120 Complete TROPONIN LEVEL 07/17 1120 Complete MAGNESIUM 07/17 1120 Complete D-DIMER 07/17 1120 Complete COMPREHENSIVE METABOLIC PANEL 07/17 1120 Complete CBC WITHOUT DIFFERENTIAL 07/17 1120 Complete EKG 07/17 1058 Active Laboratory Tests 07/17/17 1559: Troponin I 0.02 07/17/17 1351: Urine Opiates Screen < 100, Methadone Screen < 40, Barbiturate Screen < 60, Ur Phencyclidine Scrn < 6.00, Amphetamines Screen < 100, U Benzodiazepines Scrn < 85, Urine Cocaine Screen < 50, Urine Cannabis Screen < 5.00, Urine Color YEL, Urine Clarity CLEAR, Urine pH 8.0, Ur Specific [place] 1.015, Urine Protein NEG, Urine Ketones NEG, Urine Nitrite NEG, Urine Bilirubin NEG, Urine Urobilinogen 0.2, Ur Leukocyte Esterase NEG, Ur Microscopic EXAM NOT REQUIRED, Urine Hemoglobin NEG, Urine Glucose NEG 07/17/17 1131: Anion Gap 16, Estimated GFR > 60, BUN/Creatinine Ratio 16.3, Glucose 127 H, Calcium 9.5, Magnesium 1.7, Total Bilirubin 0.6, AST 75 H, ALT 71, Alkaline Phosphatase 71, Troponin I < 0.01, Total Protein 8.5 H, Albumin 4.9, Globulin 3.6, Albumin/Globulin Ratio 1.4, TSH &T3 &Free T4 Intrp 0.565, D-Dimer High Sensitivty 306 H, CBC w Diff NO MAN DIFF REQ, RBC 5.42, MCV 90.1, MCH 31.1 H, MCHC 34.5, RDW 14.6 H, MPV 7.6, Gran % 80.3 H, Lymphocytes % 13.4 L, Monocytes % 5.4, Eosinophils % 0.6, Basophils % 0.3, Absolute Granulocytes 4.4, Absolute Lymphocytes 0.7 L, Absolute Monocytes 0.3, Absolute Eosinophils 0, Absolute Basophils 0, Serum Alcohol < 10.0 Patient seen and evaluated. He has a history of hypertension and alcohol dependence. He is here elevated blood pressure. On initial evaluation his blood pressure is 180s over 100s manually at triage. Reporting chest tightness. Initial EKG shows tachycardia without significant ST or T-wave changes. She'll see what his 13 patient does have a history of withdrawal seizures. 1 mg IV Ativan ordered. We'll check basic labs, telemetry, CTA chest and pelvis to assess for aortic dissection. All blood work is within normal limits. CTA is negative. EKG is stable troponin negative. Patient remains tachycardic and hypertensive despite Ativan and her repeat CIWA is 3. Patient was given 10 mg of IV labetalol without any improvement. A second dose of labetalol this time 20 mg was given however his blood pressure still remained at 180s over 100s. Repeat EKG troponin will be obtained. Patient will likely require admission for hypertensive urgency and alcohol withdrawal. Patient states that he does not want alcohol detox however it is likely that his alcohol withdrawal symptoms are continuing to his elevated heart rate and blood pressure so both will need treatment. Patient will require IV antihypertensives, serial labs, serial EKGs, telemetry, cardiology, IV Ativan , CIWA and medication adjustment case discussed with Dr. Faria he agrees. Diagnostic Imaging: Viewed by Me: CT Scan. Discussed w/RAD: CT Scan. Radiology Impression: PATIENT: TAYLOR GEORGE PRESENT AGE: 51 PATIENT ACCOUNT NO: [id number] : 64 LOCATION: [facility] ORDERING PHYSICIAN: Cm SMITH SERVICE DATE: 07/17/17 EXAM TYPE: CAT - CT ABD & PELVIS ANGIOGRAM; CTA CHEST-AORTIC DISSECTION STUDY PERFORMED: CTA OF THE CHEST, ABDOMEN AND PELVIS WITH AND WITHOUT CONTRAST CLINICAL INFORMATION: Chest tightness. Hypertensive urgency. DESCRIPTION: Initial noncontrast CT of the chest was performed. Contrast timing was performed at the level of the distal descending thoracic aorta. Subsequently, arterial phase multidetector volumetric imaging was performed through the chest, abdomen and pelvis following the administration of 95 mL Optiray 320 intravenous contrast. No contrast reaction reported Sagittal and coronal reformatted images were obtained on the technologist workstation. Three-dimensional MIP reformatted imaging was performed and reviewed. Total exam dose-length product 2009 mGy-cm COMPARISON: CT of the abdomen and pelvis performed 04/04/2014. FINDINGS: Vascular: 1. The ascending thoracic aorta is normal in course and caliber without dissection. 2. The aortic arch is normal in course and caliber without dissection. Normal 3 vessel branching configuration with the origins widely patent. 3. The descending thoracic aorta is normal in course and caliber without dissection. Minimal atherosclerotic calcification. 4. The abdominal aorta is normal in course and caliber without dissection. Minimal atherosclerotic calcification. The iliac vasculature and visualized femoral vasculature is also unremarkable. 5. Normal origins of the celiac axis, superior mesenteric artery, and inferior mesenteric artery. The visualized branches appear well opacified. 6. There are single bilateral renal arteries which are widely patent. 7. There is no central or lobar pulmonary embolism. Nonvascular: CHEST: The central airways are patent. The lungs are clear with no evidence of consolidation. No pleural effusion or pneumothorax. There are no pulmonary parenchymal nodules. The heart is of normal size. No pericardial effusion. There is no mediastinal, hilar or axillary lymphadenopathy. There are no chest wall masses. ABDOMEN AND PELVIS: LIVER, GALLBLADDER, AND BILIARY TREE: The liver is normal in size and shape with uniformly decreased attenuation. No focal hepatic lesion or biliary ductal dilatation is present. The gallbladder is unremarkable with no evidence of radiopaque gallstones, gallbladder wall thickening, or obvious pericholecystic inflammatory changes. PANCREAS: Unremarkable. SPLEEN: Unremarkable. ADRENAL GLANDS: Unremarkable. KIDNEYS AND URETERS: The kidneys are normal in size, shape , and attenuation. No hydronephrosis, hydroureter, or calculi seen. No perinephric stranding. BLADDER: Unremarkable. GASTROINTESTINAL TRACT: The stomach is unremarkable. The small bowel is normal in caliber. There is no obstruction. Normal appendix. There is no colonic wall thickening or inflammatory change. There is minimal colonic diverticulosis without diverticulitis. No free air or free fluid. ABDOMINAL WALL: No significant hernia is appreciated. LYMPH NODES: Normal. PELVIC VISCERA: The prostate and seminal vesicles are unremarkable. OSSEOUS STRUCTURES: No acute or suspicious osseous abnormality. Degenerative changes are seen throughout the spine. Vacuum disc phenomenon noted at L5-S1. Multilevel osteophytes with facet arthropathy. Mild degenerative changes seen at both hips. Mild sclerosis along the sacroiliac joints. IMPRESSION: 1. No acute vascular abnormality. No aortic dissection. 2. No acute findings in the chest, abdomen, or pelvis. No inflammatory changes. 3. Hepatic steatosis. DICTATED BY: Moe Schulte MD DATE/TIME DICTATED:1400 [employer] SPECIALIST:KHANG DATE/TIME TRANSCRIBED:07/17/171400 CONFIDENTIAL, DO NOT COPY WITHOUT APPROPRIATE AUTHORIZATION. Initial ED EKG: SINUS TACH RATE 107, BLORDERLINE LEFT AXIS DEVAITION, ANTERIOR SEPTAL Q WAVES Prior EKG: unchanged Repeat EKG: unchanged (Cm Cuello) Departure Departure Disposition: STILL A PATIENT Condition: Stable Clinical Impression Primary Impression: Hypertensive urgency Secondary Impressions: Alcohol withdrawal Qualifiers: Complication of substance-induced condition: uncomplicated Qualified Code: F10.230 - Alcohol dependence with withdrawal, uncomplicated Referrals: Jeremiah Huston MD (PCP/Family) Departure Forms: Customer Survey General Discharge Information Admission Note Spoke With: Kevin Coleman MD Documentation of Exam: Documentation of any treatments & extenuating circumstances including Concerns Regarding Discharge (functional status, medication knowledge or non-compliance, living conditions, etc.) that warrant an admission rather than observation: [ Cardiology consult, telemetry, serial labs, serial EKGs, IV antihypertensives, IV Ativan, CIWA] (Cm Cuello) PA/PAPER MACHINE SUPERVISOR Co-Sign Statement Statement: ED Attending supervision documentation- [X] I saw and evaluated the patient. I have also reviewed all the pertinent lab results and diagnostic results. I agree with the findings and the plan of care as documented in the PA's/PAPER MACHINE SUPERVISOR's documentation. [X] I have reviewed the ED Record and agree with the PA's/PAPER MACHINE SUPERVISOR's documentation. [] Additions or exceptions (if any) to the PAs/PAPER MACHINE SUPERVISOR's note and plan are summarized below: [Patient to be admitted to telemetry for hypertensive urgency. Patient is on multiple blood pressure medications are ready. Patient is also experiencing alcohol withdrawal so he will need Ativan per the CIWA scale. Patient will need social work consultation for outpatient treatment for his alcohol dependency. Patient will need cardiology consultation with a hypertensive urgency.] (Bienvenido JORGENSEN,Dawson Kasper) Critical Care Note Critical Care Note Critical Care Time: non-applicable (Cm Cuello)
--- NOTE | 2017-07-17 14:11 | CT SCAN REPORT ---
STUDY PERFORMED: CTA OF THE CHEST, ABDOMEN AND PELVIS WITH AND WITHOUT CONTRAST CLINICAL INFORMATION: Chest tightness. Hypertensive urgency. DESCRIPTION: Initial noncontrast CT of the chest was performed. Contrast timing was performed at the level of the distal descending thoracic aorta. Subsequently, arterial phase multidetector volumetric imaging was performed through the chest, abdomen and pelvis following the administration of 95 mL Optiray 320 intravenous contrast. No contrast reaction reported Sagittal and coronal reformatted images were obtained on the technologist workstation. Three-dimensional MIP reformatted imaging was performed and reviewed. Total exam dose-length product 2009 mGy-cm COMPARISON: CT of the abdomen and pelvis performed 04/04/2014. FINDINGS: Vascular: 1. The ascending thoracic aorta is normal in course and caliber without dissection. 2. The aortic arch is normal in course and caliber without dissection. Normal 3 vessel branching configuration with the origins widely patent. 3. The descending thoracic aorta is normal in course and caliber without dissection. Minimal atherosclerotic calcification. 4. The abdominal aorta is normal in course and caliber without dissection. Minimal atherosclerotic calcification. The iliac vasculature and visualized femoral vasculature is also unremarkable. 5. Normal origins of the celiac axis, superior mesenteric artery, and inferior mesenteric artery. The visualized branches appear well opacified. 6. There are single bilateral renal arteries which are widely patent. 7. There is no central or lobar pulmonary embolism. Nonvascular: CHEST: The central airways are patent. The lungs are clear with no evidence of consolidation. No pleural effusion or pneumothorax. There are no pulmonary parenchymal nodules. The heart is of normal size. No pericardial effusion. There is no mediastinal, hilar or axillary lymphadenopathy. There are no chest wall masses. ABDOMEN AND PELVIS: LIVER, GALLBLADDER, AND BILIARY TREE: The liver is normal in size and shape with uniformly decreased attenuation. No focal hepatic lesion or biliary ductal dilatation is present. The gallbladder is unremarkable with no evidence of radiopaque gallstones, gallbladder wall thickening, or obvious pericholecystic inflammatory changes. PANCREAS: Unremarkable. SPLEEN: Unremarkable. ADRENAL GLANDS: Unremarkable. KIDNEYS AND URETERS: The kidneys are normal in size, shape, and attenuation. No hydronephrosis, hydroureter, or calculi seen. No perinephric stranding. BLADDER: Unremarkable. GASTROINTESTINAL TRACT: The stomach is unremarkable. The small bowel is normal in caliber. There is no obstruction. Normal appendix. There is no colonic wall thickening or inflammatory change. There is minimal colonic diverticulosis without diverticulitis. No free air or free fluid. ABDOMINAL WALL: No significant hernia is appreciated. LYMPH NODES: Normal. PELVIC VISCERA: The prostate and seminal vesicles are unremarkable. OSSEOUS STRUCTURES: No acute or suspicious osseous abnormality. Degenerative changes are seen throughout the spine. Vacuum disc phenomenon noted at L5-S1. Multilevel osteophytes with facet arthropathy. Mild degenerative changes seen at both hips. Mild sclerosis along the sacroiliac joints. IMPRESSION: 1. No acute vascular abnormality. No aortic dissection. 2. No acute findings in the chest, abdomen, or pelvis. No inflammatory changes. 3. Hepatic steatosis.
--- NOTE | 2017-07-17 18:12 | History & Physical ---
Cabrera Muir MD 07/17/171810: General Information and [facility] MD Statement: I have seen and personally examined TAYLOR GEORGE and documented this H&P. The patient is a 51 year old M who presented with a patient stated chief complaint of hypertension and alcohol detoxification. Source of Information: patient, old records Exam Limitations: no limitations History of Present Illness: 51 year old male with PMH significant for HTN, psoriasis, and EtOH dependence presents for hypertensive urgency. The patient reports not feeling well this morning with nonspecific complaints. After he didn't feeling right he checked his blood pressure at home and it was 196/116. He reported feeling some transient chest tightness and dyspnea and also feeling lightheaded. He took his blood pressure medications at home, continued to feel unwell, and came to the emergency department, when his blood pressure failed to improve. At the time of arrival, he denied any complaints of dyspnea or chest tightness. He did report still feeling somewhat lightheaded and not well but overall improved. He also stated that his vision was transienty blurred, that he briefly felt off balance, and had a very mild headache that he hardly noticed except upon inquiry. At the time of evaluation, he denies any chest tightness, pain or palpitations. He denies any dyspnea, diaphoresis or nausea. He was tachycardic from 100-120 and states that this has been going on for months, asymptomatically. His antihypertensive medication regimen was being adjusted by Dr. Huston as an outpatient. His nefidipine apparently was stopped and amlodipine reduced for lower extremity edema. His HCTZ was stopped and metoprolol increased for tachycardia and hypertension. He reportedly takes his blood pressure at home at usually gets systolic blood pressure in the 140s. He has been treated recently for alcohol dependence and had a recent relapse he attributes to severe anxiety and pending care home time for operating a motor vehicle without a license after a previous DWI. He has had numerous inpatient alcohol dependence treatments from 02/2017 followed 21 days at [facility] in 04/23 and 28 days at [facility] in 05/2017 with a relapse after discharge in June. He states he has been drinking 1 pint of vodka daily, last drink 07/16/17 1300. He denies any withdrawal symptoms except for anxiety. He denies every have been in critical care or having a seizure from alcohol withdrawal. In the emergency department, he was tachycardic up to a heart rate of 120 and hypertensive up to 180/110. He was given Ativan 2mg total, and labetalol IV 10mg and 20mg with a modest improvement of his blood pressure and heart rate. Two sets of troponins were negative and he was admitted to telemetry for management of hypertension and alcohol withdrawal. Allergies/Medications Allergies: Coded Allergies: No Known Allergies (07/17/17) Home Med list Amlodipine Besylate (Norvasc) 5 MG TABLET 1 TAB PO DAILY HTN (Reported) Losartan Potassium (Cozaar) 50 MG TABLET 1 TAB PO DAILY HTN Metoprolol Tartrate (Lopressor) 50 MG TABLET 1 TAB PO BID HEART (Reported) Pantoprazole Sodium 40 MG TABLET.DR 1 TAB PO DAILY GI (Reported) Trazodone HCl 100 MG TABLET 1 TAB PO QPM SLEEP (Reported) Triamcinolone Acetonide 0.1 % OINT...G. 1 AMBAR TOP TID Psoriasis (Reported) apply to affected area(s) Venlafaxine HCl 50 MG TABLET 1 TAB PO DAILY MENTAL HEALTH (Reported) Compliance With Home Meds: GOOD Past History Travel History Traveled to [place] past 21 day No Medical History Neurological: NONE EENT: NONE Cardiovascular: hypertension Respiratory: NONE Gastrointestinal: GASTRIC AND INTESTINAL ULCER Hepatic: NONE Renal: NONE Musculoskeletal: PSORAISIS Psychiatric: alcohol dependence Endocrine: NONE Blood Disorders: NONE Cancer(s): NONE LEAD SHAREPOINT DEVELOPER/Reproductive: NONE Surgical History Surgical History: non-contributory Past Family/Social History Psychosocial History ETOH Use: alcoholic Illicit Drug Use: denies illicit drug use Review of Systems Review of Systems Constitutional: Denies: chills, diaphoresis, fever. EENTM: Reports: blurred vision. Cardiovascular: Denies: chest pain, palpitations. Respiratory: Reports: short of breath. GI: Denies: abdominal pain, diarrhea, nausea, vomiting. Genitourinary: Reports: no symptoms. Musculoskeletal: Reports: no symptoms. Skin: Reports: no symptoms. Neurological/Psychological: Reports: anxiety. Hematologic/Endocrine: Reports: no symptoms. Immunologic/Allergic: Reports: no symptoms. All Other Systems: Reviewed and Negative Exam & Diagnostic Data Last 24 Hrs of Vital Signs/I&O Vital Signs Date Time Temp Pulse Resp B/P B/P Pulse O2 O2 Flow FiO2 Mean Ox Delivery Rate 07/17 1804 98.9 114 18 160/86 99 Room Air 07/17 1645 107 18 176/100 07/17 1531 111 18 180/100 07/17 1521 111 180/100 07/17 1521 111 18 180/100 96 Room Air 07/17 1445 108 18 170/106 98 Room Air 07/17 1433 111 18 174/102 07/17 1422 111 174/102 07/17 1411 98.7 111 18 174/102 96 Room Air Room Air 07/17 1206 110 160/98 07/17 1151 110 18 160/98 98 Room Air 07/17 1135 99.7 118 20 182/110 07/17 1135 98 Room Air 07/17 1054 99.7 113 15 182/110 98 Room Air Room Air Intake & Output 07/17 1600 07/17 0800 07/17 0000 Intake Total Output Total Balance Patient 102.058 kg Weight Weight Reported by Patient Measurement Method Physical Exam General Appearance Alert, Oriented X3, Cooperative, No Acute Distress, minimally tremulous Cardiovascular Normal S1, Normal S2, No Murmurs, tachycardic Lungs Clear to Auscultation, Normal Air Movement Abdomen Normal Bowel Sounds, Soft, No Tenderness, No Masses, obese Extremities No Clubbing, No Cyanosis, No Edema, Normal Pulses Last 24 Hrs of Labs/Liam: Laboratory Tests 07/17/17 1559: Troponin I 0.02 07/17/17 1351: Urine Opiates Screen < 100, Methadone Screen < 40, Barbiturate Screen < 60, Ur Phencyclidine Scrn < 6.00, Amphetamines Screen < 100, U Benzodiazepines Scrn < 85, Urine Cocaine Screen < 50, Urine Cannabis Screen < 5.00, Urine Color YEL, Urine Clarity CLEAR, Urine pH 8.0, Ur Specific [place] 1.015, Urine Protein NEG, Urine Ketones NEG, Urine Nitrite NEG, Urine Bilirubin NEG, Urine Urobilinogen 0.2, Ur Leukocyte Esterase NEG, Ur Microscopic EXAM NOT REQUIRED, Urine Hemoglobin NEG, Urine Glucose NEG 07/17/17 1131: Anion Gap 16, Estimated GFR > 60, BUN/Creatinine Ratio 16.3, Glucose 127 H, Calcium 9.5, Magnesium 1.7, Total Bilirubin 0.6, AST 75 H, ALT 71, Alkaline Phosphatase 71, Troponin I < 0.01, Total Protein 8.5 H, Albumin 4.9, Globulin 3.6, Albumin/Globulin Ratio 1.4, TSH &T3 &Free T4 Intrp 0.565, D-Dimer High Sensitivty 306 H, CBC w Diff NO MAN DIFF REQ, RBC 5.42, MCV 90.1, MCH 31.1 H, MCHC 34.5, RDW 14.6 H, MPV 7.6, Gran % 80.3 H, Lymphocytes % 13.4 L, Monocytes % 5.4, Eosinophils % 0.6, Basophils % 0.3, Absolute Granulocytes 4.4, Absolute Lymphocytes 0.7 L, Absolute Monocytes 0.3, Absolute Eosinophils 0, Absolute Basophils 0, Serum Alcohol < 10.0 Diagnostic Data EKG Results sinus tachycardic LAD no ischemic changes CXR Results chest cta Other Results COMPARISON: CT of the abdomen and pelvis performed 04/04/2014. FINDINGS: Vascular: 1. The ascending thoracic aorta is normal in course and caliber without dissection. 2. The aortic arch is normal in course and caliber without dissection. Normal 3 vessel branching configuration with the origins widely patent. 3. The descending thoracic aorta is normal in course and caliber without dissection. Minimal atherosclerotic calcification. 4. The abdominal aorta is normal in course and caliber without dissection. Minimal atherosclerotic calcification. The iliac vasculature and visualized femoral vasculature is also unremarkable. 5. Normal origins of the celiac axis, superior mesenteric artery, and inferior mesenteric artery. The visualized branches appear well opacified. 6. There are single bilateral renal arteries which are widely patent. 7. There is no central or lobar pulmonary embolism. Nonvascular: CHEST: The central airways are patent. The lungs are clear with no evidence of consolidation. No pleural effusion or pneumothorax. There are no pulmonary parenchymal nodules. The heart is of normal size. No pericardial effusion. There is no mediastinal, hilar or axillary lymphadenopathy. There are no chest wall masses. ABDOMEN AND PELVIS: LIVER, GALLBLADDER, AND BILIARY TREE: The liver is normal in size and shape with uniformly decreased attenuation. No focal hepatic lesion or biliary ductal dilatation is present. The gallbladder is unremarkable with no evidence of radiopaque gallstones, gallbladder wall thickening, or obvious pericholecystic inflammatory changes. PANCREAS: Unremarkable. SPLEEN: Unremarkable. ADRENAL GLANDS: Unremarkable. KIDNEYS AND URETERS: The kidneys are normal in size, shape, and attenuation. No hydronephrosis, hydroureter, or calculi seen. No perinephric stranding. BLADDER: Unremarkable. GASTROINTESTINAL TRACT: The stomach is unremarkable. The small bowel is normal in caliber. There is no obstruction. Normal appendix. There is no colonic wall thickening or inflammatory change. There is minimal colonic diverticulosis without diverticulitis. No free air or free fluid. ABDOMINAL WALL: No significant hernia is appreciated. LYMPH NODES: Normal. PELVIC VISCERA: The prostate and seminal vesicles are unremarkable. OSSEOUS STRUCTURES: No acute or suspicious osseous abnormality. Degenerative changes are seen throughout the spine. Vacuum disc phenomenon noted at L5-S1. Multilevel osteophytes with facet arthropathy. Mild degenerative changes seen at both hips. Mild sclerosis along the sacroiliac joints. IMPRESSION: 1. No acute vascular abnormality. No aortic dissection. 2. No acute findings in the chest, abdomen, or pelvis. No inflammatory changes. 3. Hepatic steatosis. Assessment/Plan Assessment: 51 year old male with PMH significant for HTN, psoriasis, and EtOH dependence presents for hypertensive urgency and tachycardia in the setting of alcohol withdrawal. Hypertensive urgency: Blood pressure on arrival was 182/110 Complained of dyspnea, chest tightness, and feeling lightheaded Goal reduction of blood pressure 15% Received ativan and labetalol in the ED Initial troponin undetectable, second set 0.02 EKG shows sinus tachycardia, left axis deviation, without ischemic changes Hypertension and tachycardia are compounded by acute alcohol withdrawal Continue metoprolol, losartan, and norvasc Can increase dose or frequency of metoprol as needed for blood pressure/HR control Consider adding nitropatch Trend serial troponins and EKGs TSH wnl Cardiology consultation Check echocardiogram Alcohol withdrawal: Ativan 2mg q6h Ativan prn CIWA protocol Social work consultation for aftercare Psoriasis: Continue triamcinolone cream Anxiety: Continue venlafaxine 50mg daily This may be contributing to tachycardia/hypertension but will continue at this time Continue trazodone PO PPI Heart healthy diet DVT ppx-lovenox 40mg subcutaenous daily Full code As Ranked By This Provider Problem List: 1. ETOH abuse 2. Alcohol withdrawal Qualifiers Complication of substance-induced condition: uncomplicated Qualified Code: F10.230 - Alcohol dependence with withdrawal, uncomplicated 3. Hypertensive urgency 4. Tachycardia Core Measures/Misc (11/20) Acute Coronary Syndrome ACS Diagnosis: No Congestive Heart Failure Congestive Heart Failure Diagnosis No Cerebrovascular Accident CVA/TIA Diagnosis: No VTE (View Protocol) VTE Risk Factors Age>40 No Mechanical VTE Prophylaxis d/t N/A MechProphylax Ordered No VTE Pharm Prophylaxis d/t NA PharmProphylax ordered Sepsis (View protocol) Sepsis Present: No Jane Wynn 07/17/17 7088: Resident Review Statement Resident Statement: examined this patient, discussed with internal combustion engine assembler, agreed with internal combustion engine assembler, reviewed EMR data (avail) Other Findings: This is a 51 yo M w/PMH significant for hypertension, psoriasis, alcohol use disorder who presents to the hospital for elevated blood pressure. Per patient, he took his BP today which was 196/116 and felt lightheaded. He also had some tightness in the chest and felt lightheaded. He took all his hypretensives in the morning but his BP did not improve much. At the time of interview he denies any chest tightness. Reports mild lightheadedness and headache. Has h/o etoh use disorder; last drink wasyesterday. Denies SI/HI. Please see above for more detail. Phy/Ex: VS: NM: Maximum 118 RR:18 BP: 180s systolic/100s diastolic O2 saturation: 95 Room Air NAD, AAOx3, HEENT: HNCAT, PERRLA, EOMI, NL pharynx Neck:Supple, no JVD, no carotid bruits CV:tachycardic, no murmur Lungs:CTABL Abd:NL BS, distended,NT Extremities: No edema, pulses normal and symmetrical Neurology: Nonfocal skin : Psoriatic lesions on upper and lower extremities. Available labs and diagnostic data reviewed. EKG: Sinus tachycardia, rate 100, left axis deviation, no ST-T wave abnormalities, no significant change compared to prior EKG, Qtc: 443 Problem list #Hypertensive urgency #Alcohol use disorder #Elevated AST #Psoriasis Plan: * Received IV labetalol 20 mg on IV labetalol 10 mg the ED, will resume home medications, will also administer extra dose of metoprolol 25 mg given tachycardia. * Trend troponin and EKG * Cardiology consult * echocardiogram * Continue triamcinolone cream for psoriasis * CIWA and Ativan per CIWA * Scheduled dose Ativan 2 mg every 6 * Psych and social consult * Repeat LFTs * Continue home medications * DVT prophylaxis at all times * Patient is full code Kevin Coleman MD 07/17/17 2201: Attending MD Review Statement Attending Statement Attending MD Statement: examined this patient, discuss w/resident/PA/PLUM PACKER, agreed w/resident/PA/PLUM PACKER, reviewed EMR data (avail), discussed with case mgmt, reviewed images, amended to note Attending Assessment/Plan: The patient is a 51 yo male with h/o EtOH dependence/abuse/withdrawal, HTN, and psoriasis who presented in the [place] ED with significant elevation of BP to 182/110. The patient has noted a progressive climb in his BP. His primary MD was adjusting meds (he decreased Amlodipine, eliminated HCTZ and increased Metoprolol recently). The patient stated he was having some LE edema on Amlodipine and that is the reason for the change. He has been through multiple detoxes (last was at [facility] in [place] recently followed by prison stay in [place]). He did not remain sober and began drinking immediately. He states he drinks 1-2 pints of alcohol/day. He is very anxious regarding court date. He did experience some mild mid sternal chest tightness when his BP was high, however resolved when BP was brought down. He was given Labetalol x 2 and Ativan. Pain had resolved at time of my exam. Physical Exam: VS: T 99.7, P 113-118, R 18, BP 182/110-160/86, PO 98% RA HEENT: eyes- PERRLA, EOMI, sclera w/o icterus mahsa- dry mucosa Neck: no bruits or JVD Chest: clear Cor: tachy, reg, nl S1, S2 w/o murm Abd: BS+, soft, NT, +liver edge sl firm Ext: no edema, pulses 2+ Derm: + psoriatic lesions on LE Labs/Tests- as above Impression/Plan: #Hypertensive Urgency- as above, BP now decreased with IV Labetalol/etc. Plan: Continue Metoprol, Losartan, Norvasc- continue Ativan (detox protocol). #Chest Pain- had mild substernal chest discomfort on presentation that resolved post BP lowering. .Plan: Admit to telemetry, check serial troponin I levels. Cardiology evaluation. #Tachycardia- most likely related to EtOH withdrawal. Plan: Monitor HR and continue Metoprolol. #EtOH Dependence/Withdrawal- has had multiple detoxes as above. Has significant stress due to impending court appearance. Plan: Ativan, MVI, thiamine, folate, etc.. as per Detox protocol. Social Service consult- ? IOP. #GERD/O PUD- on Pantoprazole. Plan: Continue PPI in hospital (substitute Omeprazole). #Anxiety/Depression- significant along with some depression. Is on Trazodone and Venlafaxine. Plan: Continue Trazodone and Venlafaxine.
[2017-07-17] MEDS ORDERED: NORVASC5 M1 PO ×2 (18:38→21:07)
[2017-07-17] MEDS ORDERED: TRIAMCINOLONE A15 G3 TOP (21:05)
--- NOTE | 2017-07-17 22:21 | Admission Certification ---
Admission Certification Certification Statement - As attending physician, I certify that at the time of - admission, based on clinical presentation, severity of - symptoms, need for further diagnostic testing and - therapeutic interventions, and risk of adverse outcomes - without in-hospital treatment, in my clinical assessment, - this patient requires an acute hospital stay for a minimum - of two nights or longer. I have also considered psychsocial - factors such as support system, advanced age, financial - issues, cognitive issues, and failed out-patient treatments, - past re-admission history, safety of patient, and lack of - compliance as applicable. Specific rationale supporting this admission is: The patient presents health system hypertensive urgency with BP 182/110 and substernal chest discomfort. Also in EtOH withdrawal. Needs telemetry admission. Serial troponin I levels, Cardiology consult, ECHO, may need further IV meds for BP ( had IV labetalol in ED).
[2017-07-18] VITALS (7 sets, daily range): BP systolic 148–174; BP diastolic 82–100
--- NOTE | 2017-07-18 07:03 | PN- Housestaff ---
See Addendum Subjective Follow-up For: hypertensive urgency EtOH detox Tele-Events Since Last Visit: sinus rhythm HR 80s-90s, no events Subjective: no overnight events no chest pain blood pressure and tachycardia improved Review of Systems Constitutional: Reports: see HPI. Objective Last 24 Hrs of Vital Signs/I&O Vital Signs Date Time Temp Pulse Resp B/P B/P Pulse O2 O2 Flow FiO2 Mean Ox Delivery Rate 07/18 07 98.6 94 20 158/86 100 Room Air 07/18 0600 94 158/86 07/18 0400 94 172/100 07/18 0000 83 174/90 07/17 2329 98 174/90 07/17 2200 98 172/98 07/17 2118 91 172/98 07/17 2114 91 172/98 07/17 2035 99.1 98 20 184/114 95 Room Air 07/17 2016 98.8 109 16 158/80 99 Room Air 07/17 1910 114 160/86 07/17 1804 98.9 114 18 160/86 99 Room Air 07/17 1645 107 18 176/100 07/17 1531 111 18 180/100 07/17 1521 111 180/100 07/17 1521 111 18 180/100 96 Room Air 07/17 1445 108 18 170/106 98 Room Air 07/17 1433 111 18 174/102 07/17 1422 111 174/102 07/17 1411 98.7 111 18 174/102 96 Room Air Room Air 07/17 1206 110 160/98 07/17 1151 110 18 160/98 98 Room Air 07/17 1135 99.7 118 20 182/110 07/17 1135 98 Room Air 07/17 1054 99.7 113 15 182/110 98 Room Air Room Air Intake & Output 07/18 1600 07/18 0800 07/18 0000 Intake Total 330 220 Output Total 400 250 Balance -70 -30 Intake, Oral 330 220 Output, Urine 400 250 Patient 106.169 kg Weight Weight Bed scale Measurement Method Physical Exam General Appearance: Alert, Oriented X3, Cooperative, No Acute Distress Cardiovascular: Regular Rate, Normal S1, Normal S2, No Murmurs Lungs: Clear to Auscultation, Normal Air Movement Abdomen: Normal Bowel Sounds, Soft, No Tenderness, No Masses Extremities: No Clubbing, No Cyanosis, No Edema, Normal Pulses Current Medications: Current Medications Sig/Den Start time Last Medication Dose Route Stop Time Status Admin Amlodipine Besylate 5 MG DAILY 07/18 0900 AC PO Enoxaparin Sodium 40 MG DAILY 07/18 0900 AC SC Labetalol HCl 20 MG ONCE ONE 07/17 1500 DC 07/17 IV 07/17 1501 1521 Labetalol HCl 0 .STK-MED ONE 07/17 1423 DC IV Labetalol HCl 10 MG ONCE ONE 07/17 1415 DC 07/17 IV 07/17 1416 1422 Lorazepam 2 MG Q6 07/17 2359 AC 07/18 PO 0510 Lorazepam 2 MG FOUR TIMES A DAY 07/17 2100 DC PO Lorazepam 0 Q1P PRN 07/17 1830 AC 07/17 IV 2217 Lorazepam 0 .STK-MED ONE 07/17 1655 DC .ROUTE Lorazepam 1 MG ONCE ONE 07/17 1645 DC 07/17 IV 07/17 1646 1649 Lorazepam 1 MG ONCE ONE 07/17 1130 DC 07/17 IV 07/17 1131 1130 Lorazepam 0 .STK-MED ONE 07/17 1129 DC .ROUTE Losartan Potassium 50 MG DAILY 07/18 09 AC PO Metoprolol Tartrate 50 MG BID 07/17 2100 AC 07/17 PO 2114 Metoprolol Tartrate 0 .STK-MED ONE 07/17 1907 DC PO Metoprolol Tartrate 25 MG ONCE ONE 07/17 1845 DC 07/17 PO 07/17 1846 1910 Omeprazole 0 .STK-MED ONE 07/17 1909 DC PO Omeprazole 40 MG DAILY AC 07/17 1838 AC 07/18 PO 0509 Trazodone HCl 100 MG QPM 07/18 2100 DC PO Trazodone HCl 100 MG .STK-MED ONE 07/17 2208 DC PO 07/17 2209 Trazodone HCl 100 MG QPM 07/17 2200 AC 07/17 PO 2216 Triamcinolone 1 AMBAR TID 07/18 2107 AC Acetonide TOP Venlafaxine HCl 50 MG DAILY 07/18 0900 AC PO Last 24 Hrs of Lab/Liam Results Last 24 Hrs of Labs/Mics: Laboratory Tests 07/18/17 0450: Anion Gap 12, Estimated GFR > 60, BUN/Creatinine Ratio 16.3, Troponin I 0.02 07/17/17 2302: Troponin I 0.02 07/17/17 1559: Troponin I 0.02 07/17/17 1351: Urine Opiates Screen < 100, Methadone Screen < 40, Barbiturate Screen < 60, Ur Phencyclidine Scrn < 6.00, Amphetamines Screen < 100, U Benzodiazepines Scrn < 85, Urine Cocaine Screen < 50, Urine Cannabis Screen < 5.00, Urine Color YEL, Urine Clarity CLEAR, Urine pH 8.0, Ur Specific [place] 1.015, Urine Protein NEG, Urine Ketones NEG, Urine Nitrite NEG, Urine Bilirubin NEG, Urine Urobilinogen 0.2, Ur Leukocyte Esterase NEG, Ur Microscopic EXAM NOT REQUIRED, Urine Hemoglobin NEG, Urine Glucose NEG 07/17/17 1131: Anion Gap 16, Estimated GFR > 60, BUN/Creatinine Ratio 16.3, Glucose 127 H, Calcium 9.5, Magnesium 1.7, Total Bilirubin 0.6, AST 75 H, ALT 71, Alkaline Phosphatase 71, Troponin I < 0.01, Total Protein 8.5 H, Albumin 4.9, Globulin 3.6, Albumin/Globulin Ratio 1.4, TSH &T3 &Free T4 Intrp 0.565, D-Dimer High Sensitivty 306 H, CBC w Diff NO MAN DIFF REQ, RBC 5.42, MCV 90.1, MCH 31.1 H, MCHC 34.5, RDW 14.6 H, MPV 7.6, Gran % 80.3 H, Lymphocytes % 13.4 L, Monocytes % 5.4, Eosinophils % 0.6, Basophils % 0.3, Absolute Granulocytes 4.4, Absolute Lymphocytes 0.7 L, Absolute Monocytes 0.3, Absolute Eosinophils 0, Absolute Basophils 0, Serum Alcohol < 10.0 Assessment/Plan Assessment: 51 year old male with PMH significant for HTN, psoriasis, and EtOH dependence presents for hypertensive urgency and tachycardia in the setting of alcohol withdrawal. Hypertensive urgency: Blood pressure improved this morning to 158/86 Hypertension and tachycardia are compounded by acute alcohol withdrawal Continue metoprolol, losartan, and norvasc Serial troponins and EKGs negative for myocardial ischemia TSH wnl Cardiology consultation Check echocardiogram with Dr. Weston Alcohol withdrawal: Ativan 2mg q8h standing dose Ativan prn CIWA protocol, CIWA 6-11 Social work consultation for aftercare Psoriasis: Continue triamcinolone cream Anxiety: Continue venlafaxine 50mg daily This may be contributing to tachycardia/hypertension but will continue at this time Continue trazodone PO PPI Heart healthy diet DVT ppx-lovenox 40mg subcutaenous daily Full code Problem List: 1. ETOH abuse 2. Alcohol withdrawal 3. Alcohol dependence 4. Tachycardia 5. Hypertensive urgency Pain Ratin Pain Location: n/a Pain Goal: Pain 4 or less Pain Plan: prn Tomorrow's Labs & Rationales: none
--- NOTE | 2017-07-18 19:01 | Cons- Cardiology ---
General Information and HPI Consulting Request Date of Consult: 07/18/17 Requested By: Starr Manriquez MD History of Present Illness: This patient is a 51 year old male with history of hypertension and alcohol abuse. He presented to the hospital for evaluation of severe hypertension and a non-specific feeling of ill-being. He had a transient off balance sensation, lightheadedness, blurred vision and mild headache. The patient also has some chest discomfort. This chest discomfort has no exertional component to it and is described as a non-radiating burning sensation. It is not associated with nausea , vomiting or diaphoresis. He does have intermittent shortness of breath. The patient is also noted to have tachycardia up to 120bpm. This patient was previously taking Nifedipine and HCTZ for his hypertension but these medications were stopped. He is also on Metoprolol. 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 He has had numerous inpatient alcohol dependence treatments from 02/2017 followed 21 days at [facility] in 04/23 and 28 days at [place] in 05/2017 with a relapse after discharge in June. He states he has been drinking 1 pint of vodka daily, last drink 07/16/17 1300. He denies any withdrawal symptoms except for anxiety. He denies every have been in critical care or having a seizure from alcohol withdrawal. Allergies/Medications Allergies: Coded Allergies: No Known Allergies (07/17/17) Home Med List: Amlodipine Besylate (Norvasc) 5 MG TABLET 1 TAB PO DAILY HTN (Reported) Losartan Potassium (Cozaar) 50 MG TABLET 1 TAB PO DAILY HTN Metoprolol Tartrate (Lopressor) 50 MG TABLET 1 TAB PO BID HEART (Reported) Pantoprazole Sodium 40 MG TABLET.DR 1 TAB PO DAILY GI (Reported) Trazodone HCl 100 MG TABLET 1 TAB PO QPM SLEEP (Reported) Triamcinolone Acetonide 0.1 % OINT...G. 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 Home Smoking Status: Never Smoked ETOH Use: alcoholic Illicit Drug Use: denies illicit drug use Exam & Diagnostic Data Vital Signs and I&O Vital Signs Date Time Temp Pulse Resp B/P B/P Pulse O2 O2 Flow FiO2 Mean Ox Delivery Rate 07/18 1500 98.3 89 20 168/98 96 07/18 1318 152/90 07/18 1002 12 182/110 07/18 1002 123 182/110 07/18 1001 123 182/110 07/18 0714 98.6 94 20 158/86 100 Room Air 07/18 0600 94 158/86 07/18 0400 94 172/100 07/18 0000 83 174/90 07/17 2329 98 174/90 07/17 2200 98 172/98 07/17 2118 91 172/98 07/17 2114 91 172/98 07/17 2035 99.1 98 20 184/114 95 Room Air 07/17 2016 98.8 109 16 158/80 99 Room Air 07/17 1910 114 160/86 Intake & Output 07/18 1600 07/18 0800 07/18 0000 07/17 1600 07/17 0800 07/17 0000 Intake Total 600 330 220 Output Total 400 250 Balance 600 -70 -30 Intake, Oral 600 330 220 Output, Urine 400 250 Patient 234 lb 225 lb Weight Weight Bed scale Reported by Patient Measurement Method Physical Exam: General: WD/WN male in NAD; alert and oriented x 3 Skin: psoriatic patches noted HEENT: NC/AT, PERRL, EOMI Neck: no JVD, no carotid bruit Heart: RRR without murmur Lungs: clear bilaterally Abdomen: soft, NT, +ve bowel sounds Extremities: no edema Assessment/Plan Assessment/Plan * This patient has chest discomfort that is atypical for myocardial ischemia although risk stratification with a treadmill nuclear stress test is reasonable and recommended. My strongest suspicion is that his discomfort is related to an esophagitis related to alcohol abuse. Continue Omeprazole. * This patient has intermittent tachycardia which is likely related to alcohol abuse and issues related to alcohol such as dehydration, withdrawal, poor compliance with medications or anxiety. Continue to monitor on telemetry. Stop Metoprolol and begin Labetolol 200mg BID. Continue HCTZ. Stop Amlodipine and begin Nifedipine ER 30mg daily. * obtain an echocardiogram. Consult Acknowledgment - Thank you for your consult request.
[2017-07-19] VITALS (7 sets, daily range): BP systolic 114–170; BP diastolic 66–96
--- NOTE | 2017-07-19 07:12 | PN- Housestaff ---
See Addendum Subjective Follow-up For: hypertensive urgency etoh withdrawal Tele-Events Since Last Visit: sinus rhythm/sinus tachycardia HR 80s-110s, up to 120s Subjective: mild headache overnight improved with tylenol HTN medications changed yesterday Review of Systems Constitutional: Reports: see HPI. Objective Last 24 Hrs of Vital Signs/I&O Vital Signs Date Time Temp Pulse Resp B/P B/P Pulse O2 O2 Flow FiO2 Mean Ox Delivery Rate 07/19 0828 120 170/90 07/19 0828 97.7 120 20 170/90 07/19 0828 120 170/90 07/19 0646 97.7 104 20 170/90 97 Room Air 07/19 0643 118 18 160/92 07/19 0552 98 170/96 07/19 0543 98 16 170/90 07/18 2317 98.6 108 16 148/82 94 Room Air 07/18 2230 101 148/86 07/18 1500 98.3 89 20 168/98 96 07/18 1318 152/90 07/18 1002 12 182/110 07/18 1002 123 182/110 07/18 1001 123 182/110 Intake & Output 07/19 1600 07/19 0800 07/19 0000 Intake Total 200 350 Output Total Balance 200 350 Intake, Oral 200 350 Number 0 1 Bowel Movements Patient 104.355 kg Weight Weight Bed scale Measurement Method Physical Exam General Appearance: Alert, Oriented X3, Cooperative, No Acute Distress Cardiovascular: Regular Rate, Normal S1, Normal S2, No Murmurs Lungs: Clear to Auscultation, Normal Air Movement Abdomen: Normal Bowel Sounds, Soft, No Tenderness, No Masses Extremities: No Clubbing, No Cyanosis, No Edema, Normal Pulses Current Medications: Current Medications Sig/Den Start time Last Medication Dose Route Stop Time Status Admin Amlodipine Besylate 5 MG DAILY 07/18 0900 DC 07/18 PO 1002 Enoxaparin Sodium 40 MG DAILY 07/18 0900 AC 07/19 SC 0829 Folic Acid 1 MG DAILY 07/18 1335 AC 07/19 PO 0828 Hydrochlorothiazide 25 MG DAILY 07/18 1334 AC 07/19 PO 0828 Labetalol HCl 200 MG BID 07/18 2100 AC 07/19 PO 0828 Lorazepam 1 MG Q6 07/19 1200 UNVr PO Lorazepam 2 MG Q8 07/18 1400 DC 05/16 PO 0534 Lorazepam 2 MG Q6 07/17 2359 DC 07/18 PO 0510 Lorazepam 0 Q1P PRN 07/17 1830 AC 07/19 IV 0546 Losartan Potassium 50 MG DAILY 07/18 0900 AC 07/19 PO 0828 Metoprolol Tartrate 50 MG BID 07/17 2100 DC 07/18 PO 1002 Multivitamins 1 TAB DAILY 07/18 1334 AC 07/19 PO 0828 Nifedipine 30 MG DAILY 07/19 0900 AC 07/19 PO 0828 Nystatin 1 AMBAR BID 07/18 1113 CAN TOP Nystatin 1 AMBAR BID 07/18 1113 AC 07/19 TOP 0832 Nystatin 1 AMBAR BID 07/18 1053 DC TOP Omeprazole 40 MG DAILY AC 07/17 1838 AC 07/19 PO 0533 Patient Medication 1 ED ONE ONE 07/18 1330 DC Teaching ED 07/18 1331 Thiamine HCl 100 MG DAILY 07/18 1334 AC 07/19 PO 0828 Trazodone HCl 100 MG QPM 07/17 2200 AC 07/18 PO 2230 Triamcinolone 1 AMBAR TID 07/17 2108 AC 07/19 Acetonide TOP 0829 Venlafaxine HCl 50 MG DAILY 07/18 0900 AC 07/19 PO 0827 Assessment/Plan Assessment: 51 year old male with PMH significant for HTN, psoriasis, and EtOH dependence presents for hypertensive urgency and tachycardia in the setting of alcohol withdrawal. Hypertensive urgency: Blood pressure improved this morning to 158/86 Hypertension and tachycardia are compounded by acute alcohol withdrawal Medications changed to labetalol 200mg po bid, nifedipine 30mg, losartan 50mg, hctz 25mg Serial troponins and EKGs negative for myocardial ischemia TSH [facility] Cardiology consultation with Dr. Weston Check echocardiogram Will need exercise stress test for risk stratification Alcohol withdrawal: Ativan decreased to 1mg q6h standing dose Ativan prn CIWA protocol, CIWA 0-10 Social work consultation for aftercare Psoriasis: Continue triamcinolone cream Anxiety: Continue venlafaxine 50mg daily This may be contributing to tachycardia/hypertension but will continue at this time Continue trazodone PO PPI Heart healthy diet DVT ppx-lovenox 40mg subcutaneous daily Full code Problem List: 1. ETOH abuse 2. Alcohol dependence 3. Alcohol withdrawal 4. Tachycardia 5. Hypertensive urgency Pain Ratin Pain Location: n/a Pain Goal: Pain 4 or less Pain Plan: prn Tomorrow's Labs & Rationales: none
--- NOTE | 2017-07-19 18:39 | PN- Cardiology ---
Subjective Subjective: * Patient feels much improved. * sinus tachycardia Objective Vital Signs and I&Os Vital Signs Date Time Temp Pulse Resp B/P B/P Pulse O2 O2 Flow FiO2 Mean Ox Delivery Rate 07/19 1600 98 / 1200 98.6 100 18 114/66 05/16 1200 98.6 101 20 114/66 94 Room Air 07/19 0828 120 170/90 05/16 0828 97.7 120 20 170/90 / 0828 120 170/90 /16 0800 120 20 170/90 05/16 0646 97.7 104 20 170/90 97 Room Air 07/19 0643 118 18 160/92 05/16 0552 98 170/96 05/16 0543 98 16 170/90 05 2317 98.6 108 16 148/82 94 Room Air 07/18 2230 101 148/86 Intake & Output 07/19 1600 16 0800 / 0000 07/18 1600 07/18 0800 05 0000 Intake Total 500 200 350 600 330 220 Output Total 400 250 Balance 500 200 350 600 -70 -30 Intake, Oral 500 200 350 600 330 220 Number 0 1 Bowel Movements Output, Urine 400 250 Patient 230 lb 234 lb Weight Weight Bed scale Bed scale Measurement Method Physical Exam: General: WD/WN male in NAD; alert and oriented x 3 Skin: psoriatic patches noted HEENT: NC/AT, PERRL, EOMI Neck: no JVD, no carotid bruit Heart: tachycardic and regular without murmur Lungs: clear bilaterally Abdomen: soft, NT, +ve bowel sounds Extremities: no edema Assessment/Plan Assessment/Plan * This patient has chest discomfort that is atypical for myocardial ischemia although risk stratification with a treadmill nuclear stress test is reasonable and recommended. My strongest suspicion is that his discomfort is related to an esophagitis related to alcohol abuse. Continue Omeprazole. * Blood pressure is much better controlled as per his last two readings. He is still working toward a steady state blood level of Nifedipine and Labetolol. We will reassess tomorrow. Continue the above medications and HCTZ. * Check thyroid function tests i.e. TSH and free T4. * obtain an echocardiogram. Continue telemetry? Yes
[2017-07-20 06:30] VITALS: BP 126/80
--- NOTE | 2017-07-20 07:25 | PN- Housestaff ---
See Addendum Subjective Follow-up For: hypertension tachycardia EtOH withdrawal Tele-Events Since Last Visit: sinus rhythm/sinus tachycardia HR 80s-100s Subjective: no new complaints patient reports his anxiety hasn't been well controlled despite effexor but he has also been using alcohol and thinks adjusting his medications may help his anxiety Review of Systems Constitutional: Reports: see HPI. Objective Last 24 Hrs of Vital Signs/I&O Vital Signs Date Time Temp Pulse Resp B/P B/P Pulse O2 O2 Flow FiO2 Mean Ox Delivery Rate 07/20 0630 97.6 99 20 126/80 96 07/19 2209 99.5 97 22 130/80 93 07/19 2106 102 144/98 07/19 1600 98 07/19 1200 98.6 100 18 114/66 07/19 1200 98.6 101 20 114/66 94 Room Air 07/19 0828 120 170/90 07/19 0828 97.7 120 20 170/90 07/19 0828 120 170/90 07/19 0800 120 20 170/90 Intake & Output 07/20 0800 07/20 0000 07/19 1600 Intake Total 220 480 500 Output Total Balance 220 480 500 Intake, Oral 220 480 500 Patient 105.318 kg Weight Physical Exam General Appearance: Alert, Oriented X3, Cooperative, No Acute Distress Cardiovascular: Regular Rate, Normal S1, Normal S2, No Murmurs Lungs: Clear to Auscultation, Normal Air Movement Abdomen: Normal Bowel Sounds, Soft, No Tenderness, No Masses Extremities: No Clubbing, No Cyanosis, No Edema, Normal Pulses Current Medications: Current Medications Sig/Den Start time Last Medication Dose Route Stop Time Status Admin Acetaminophen 325 MG ONCE ONE 07/20 0430 DC 07/20 PO 07/20 0431 0459 Enoxaparin Sodium 40 MG DAILY 07/18 0900 AC 07/19 SC 0829 Folic Acid 1 MG DAILY 07/18 1335 AC 07/19 PO 0828 Hydrochlorothiazide 25 MG DAILY 07/18 1334 AC 07/19 PO 0828 Labetalol HCl 200 MG BID 07/18 2100 AC 07/19 PO 2106 Lorazepam 1 MG Q8 07/20 1400 AC PO Lorazepam 1 MG Q6 07/19 1200 DC 07/20 PO 0548 Lorazepam 2 MG Q8 07/18 1400 DC 07/19 PO 0534 Lorazepam 0 Q1P PRN 07/17 1830 AC 07/19 IV 0546 Losartan Potassium 50 MG DAILY 07/18 0900 AC 07/19 PO 0828 Multivitamins 1 TAB DAILY 07/18 1334 AC 07/19 PO 0828 Nifedipine 30 MG DAILY 07/19 0900 AC 07/19 PO 0828 Nystatin 1 AMBAR BID 07/18 1113 AC 07/19 TOP 2107 Omeprazole 40 MG DAILY AC 07/17 1838 AC 07/20 PO 0548 Thiamine HCl 100 MG DAILY 07/18 1334 AC 07/19 PO 0828 Trazodone HCl 100 MG QPM 07/17 2200 AC 07/19 PO 2107 Triamcinolone 1 AMBAR TID 07/17 210 AC 07/19 Acetonide TOP 210 Venlafaxine HCl 50 MG DAILY 07/18 0900 AC 07/19 PO 0827 Last 24 Hrs of Lab/Liam Results Last 24 Hrs of Labs/Mics: Laboratory Tests 07/20/17 0705: TSH Pending, Free T4 Pending Orders CIWA Score (last 24 hrs): 0-5 Assessment/Plan Assessment: 51 year old male with PMH significant for HTN, psoriasis, and EtOH dependence presents for hypertensive urgency and tachycardia in the setting of alcohol withdrawal. Hypertensive urgency: Blood pressure improved this morning to 120s this morning Hypertension and tachycardia are compounded by acute alcohol withdrawal Medications changed to labetalol 200mg po bid, nifedipine 30mg, losartan 50mg, hctz 25mg Serial troponins and EKGs negative for myocardial ischemia TSH [facility] Cardiology consultation with Dr. Weston Check echocardiogram Will need exercise stress test for risk stratification Alcohol withdrawal: Ativan decreased to 1mg q8h standing dose Ativan prn CIWA protocol, CIWA 0-5 past 24 hours Social work consultation for aftercare Psoriasis: Continue triamcinolone cream Anxiety: Continue venlafaxine 50mg daily This may be contributing to tachycardia/hypertension but will continue at this time Continue trazodone Psychiatry consultation for medication adjustment recommendations PO PPI Heart healthy diet DVT ppx-lovenox 40mg subcutaneous daily Full code Problem List: 1. Tachycardia 2. Hypertensive urgency 3. Alcohol dependence 4. Alcohol withdrawal Pain Ratin Pain Location: n/a Pain Goal: Pain 4 or less Pain Plan: prn Tomorrow's Labs & Rationales: none
--- NOTE | 2017-07-20 10:03 | Cons- Psychiatry ---
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 Past Surgical History Surgical History: non-contributory Psychosocial History Strengths/Capabilities: 4 months ago, obtained a new job and is determined to keep job and would like treatment to be around work schedule Physical Limitations (Interventions): none Psychiatric Treatment History Diagnosis: Alcohol Use Disorder Opiate Use Disorder Cocaine Use Disorder Depression Risk Factors: SA/MH hospitalized, substance abuse, poor impulse control, male, limited support Assessment/Plan Impression: Tommie is a 51 y/o M with PMH HTN and psoriasis PPHx EtOH dep, opioid abuse, cocaine abuse who presented to the ED with hypertensive urgency. At home he did not feel well and had a DEAL, lightheadedness and some visual disturbances. In the ED he was found to be tachycardic with pressures <180s/100s. Usual pressures run in the 140s systolic. 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 Was most recently drinking 1 pint of vodka daily, last drink . He was admitted to [facility] for monitoring. Past Psych: Treated here by Dr. Pérez x 2 [id number] for detox. [facility] IOP x 2. Drinking since 15 yo. Hx crack, opioid abuse. MDD. Trialed Celexa no benefit. [facility] for detox and [place] x 2 relapsed in June. He denies ICU, seizure, DTs. No suicide attempts. 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 deported years ago to [place]. Has two sons, one lives with him. NKDA Home Med list Amlodipine Besylate (Norvasc) 5 MG TABLET 1 TAB PO DAILY HTN (Reported) Losartan Potassium (Cozaar) 50 MG TABLET 1 TAB PO DAILY HTN Metoprolol Tartrate (Lopressor) 50 MG TABLET 1 TAB PO BID HEART (Reported) Pantoprazole Sodium 40 MG TABLET.DR 1 TAB PO DAILY GI (Reported) Trazodone HCl 100 MG TABLET 1 TAB PO QPM SLEEP (Reported) Triamcinolone Acetonide 0.1 % OINT...G. 1 AMBAR TOP TID Psoriasis (Reported) apply to affected area(s) Venlafaxine HCl 50 MG TABLET 1 TAB PO DAILY MENTAL HEALTH (Reported) MSE Pt is middle aged male sitting in bed in NAD. He is mildly sedated and oriented with no obvious motor abnormalities. Pleasant and calm on exam. Speech is mildly slowed and soft. He is distressed about going to [facility]. His thought process is circumstantial and content includes many anxious cognitions but no delusions or hallucinations and no SI or HI. His insight is fair as he admits he has alcohol dependence but judgment is somewhat poor given he will not puruse rehab which I encouraged him to do. A/ 51 y/o M with MDD, anxiety and extensive hx etoh dep remote hx polysubstance abuse who presented for hypertensive urgency and currently being detoxed from etoh. Anxiety d/o unspecified. 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 Effexor contraindicated in someone with pressures getting this high. #1) Would stop Effexor. #2) Would start Prozac 20 mg for tomorrow to cover Effexor withdrawal symptoms. #3) Would start Buspar 5 mg BID #4) He will require a titration on his Buspar which I will write for you if he tolerates first few doses. #5) He is not interested in aftercare despite counseling. Thank you for this consult. Page with any questions. Jaimie #[phone]
--- NOTE | 2017-07-20 12:32 | ECHOCARDIOGRAM REPORT ---
TAYLOR GEORGE Age: 51 : 1965 Gender: M Exam Date: 07/19/2017 13:47 Exam Location: 1 [address] Ht (in): 67 Wt (lb): 234 BSA: 2.28 BP: 182 / 110 Ordering Physician: Cabrera Muir MD Referring Physician: Carlo Weston MD, PhD Technologist: Radha Lennon [facility] Room Number: [id number] Indications: HYPERTENSION Rhythm: Sinus Technical Quality: good FINDINGS Left Ventricle Normal left ventricular size with moderate left ventricular hypertrophy. Normal systolic function with no obvious regional wall motion abnormalities. Diastolic filling pattern is consistent with impaired LV relaxation. The ejection fraction is visually estimated at 70%. Right Ventricle The right ventricle is normal in size and function. Right Atrium The right atrium is normal in size. Left Atrium The left atrium is mildly enlarged. The interatrial septum is intact. Mitral Valve The mitral valve is normal in structure and function. There is no mitral regurgitation. Aortic Valve Structurally normal aortic valve without significant sclerosis or stenosis. There is trace aortic regurgitation. Tricuspid Valve The tricuspid valve is normal in structure and function. There is trace tricuspid regurgitation. Pulmonary artery systolic pressure is normal. Pulmonic Valve Structurally normal pulmonic valve. There is no pulmonic regurgitation. Pericardium Normal pericardium without effusion. No pleural effusion. Great Vessels Normal aortic root dimension. The aortic arch and great vessels are well seen and are normal. CONCLUSIONS 1. Normal EF of 70% with impaired LV relaxation. 2. Mild left ventricular hypertrophy. 3. Mild left atrial enlargement. 4. Trace tricuspid regurgitation. 5. Trace aortic insufficiency. Carlo Weston M.D. (Electronically Signed) Final Date: 20 Jul 2017 12:32 MEASUREMENTS (Male / Female) Normal Values 2D ECHO LV Diastolic Diameter PLAX 3.4 cm 4.2 - 5.9 / 3.9 - 5.3 cm LV Systolic Diameter PLAX 2.1 cm 2.1 - 4.0 cm LV Fractional Shortening PLAX 38.2 % 25 - 46 % LV Ejection Fraction 2D Teich 69.6 % IVS Diastolic Thickness 1.5 cm LVPW Diastolic Thickness 1.5 cm LV Relative Wall Thickness 0.9 RV Internal Dim ED PLAX 3.0 cm 1.9 - 3.8 cm LVOT Diameter 2.1 cm Aortic Root Diameter 3.3 cm LA Systolic Diameter LX 4.5 cm 3.0 - 4.0 / 2.7 - 3.8 cm LA Volume 29.0 cm 18 - 58 / 22 - 52 cm Ascending Aorta Diameter 3.2 cm DOPPLER AV Peak Velocity 158.0 cm/s AV Peak Gradient 10.0 mmHg AV Mean Velocity 110.0 cm/s AV Mean Gradient 6.0 mmHg AV Velocity Time Integral 25.6 cm LVOT Peak Velocity 111.0 cm/s LVOT Peak Gradient 4.9 mmHg LVOT Mean Velocity 83.5 cm/s LVOT Mean Gradient 3.0 mmHg LVOT Velocity Time Integral 20.5 cm LVOT Stroke Volume 71.0 cm AV Area Cont Eq vti 2.8 cm AV Area Cont Eq pk 2.4 cm MV Peak Velocity 95.1 cm/s MV Peak Gradient 3.6 mmHg MV Mean Velocity 54.8 cm/s MV Mean Gradient 1.0 mmHg Mitral E Point Velocity 54.3 cm/s Mitral A Point Velocity 74.5 cm/s Mitral E to A Ratio 0.7 MV PHT Velocity 68.8 cm/s MV Deceleration Labette 256.0 cm/s MV Pressure Half Time 80.6 ms MV Area PHT 2.7 cm MV Deceleration Time 378.0 ms TR Peak Velocity 112.0 cm/s TR Peak Gradient 5.0 mmHg Right Atrial Pressure 5.0 mmHg Pulmonary Artery Systolic Pressu 10.0 mmHg Right Ventricular Systolic Press 10.0 mmHg PV Peak Velocity 103.0 cm/s PV Peak Gradient 4.2 mmHg PV Mean Velocity 69.7 cm/s PV Mean Gradient 2.0 mmHg PV Velocity Time Integral 21.4 cm LV E' Lateral Velocity 5.7 cm/s Mitral E to LV E' Lateral Ratio 9.6 LV E' Septal Velocity 4.2 cm/s Mitral E to LV E' Septal Ratio 13.0
[2017-07-20 14:33] VITALS: BP 120/74
--- NOTE | 2017-07-20 18:50 | PN- Cardiology ---
Subjective Subjective: * Patient feels well without chest discomfort, shortness of breath, lightheadedness or palpitations. * Blood pressure is now well controlled. Objective Vital Signs and I&Os Vital Signs Date Time Temp Pulse Resp B/P B/P Pulse O2 O2 Flow FiO2 Mean Ox Delivery Rate 07/20 1433 98.8 89 18 120/74 97 Room Air 07/20 0808 99 126/80 07/20 0808 99 126/80 07/20 0807 99 126/80 07/20 0630 97.6 99 20 126/80 96 07/19 2209 99.5 97 22 130/80 93 07/19 2106 102 144/98 Intake & Output 07/20 1600 07/20 0800 07/20 0000 07/19 1600 07/19 0800 07/19 0000 Intake Total 800 220 480 500 200 350 Output Total Balance 800 220 480 500 200 350 Intake, Oral 800 220 480 500 200 350 Number 0 1 Bowel Movements Patient 232 lb 230 lb Weight Weight Bed scale Measurement Method Physical Exam: General: WD/WN male in NAD; alert and oriented x 3 Skin: psoriatic patches noted HEENT: NC/AT, PERRL, EOMI Neck: no JVD, no carotid bruit Heart: RRR without murmur Lungs: clear bilaterally Abdomen: soft, NT, +ve bowel sounds Extremities: no edema Assessment/Plan Assessment/Plan * This patient has chest discomfort that is atypical for myocardial ischemia although risk stratification with a treadmill nuclear stress test is reasonable and recommended. My strongest suspicion is that his discomfort is related to an esophagitis related to alcohol abuse. Continue Omeprazole. * Blood pressure is now well controlled on his current medications. No changes are recommended. Continue the above medications and HCTZ. * Improved heart rate with normal TFT's. Continue telemetry? No
[2017-07-20 22:09] VITALS: BP 130/88
[2017-07-21 06:25] VITALS: BP 124/80
--- NOTE | 2017-07-21 07:03 | PN- Housestaff ---
See Addendum Subjective Follow-up For: tachycardia HTN EtOH dependence and withdrawal Tele-Events Since Last Visit: sinus rhythm, no events Subjective: no complaints, feeling well monitoring for adverse effects from new psychiatric medications Review of Systems Constitutional: Reports: see HPI. Objective Last 24 Hrs of Vital Signs/I&O Vital Signs Date Time Temp Pulse Resp B/P B/P Pulse O2 O2 Flow FiO2 Mean Ox Delivery Rate 07/21 0625 99.4 90 20 124/80 93 07/20 2210 107 126/70 07/20 2209 99.1 103 28 130/88 93 07/20 1433 98.8 89 18 120/74 97 Room Air Intake & Output 07/21 1600 07/21 0800 07/21 0000 Intake Total 800 800 Output Total Balance 800 800 Intake, Oral 800 800 Patient 104.44 kg Weight Physical Exam General Appearance: Alert, Oriented X3, Cooperative, No Acute Distress Cardiovascular: Regular Rate, Normal S1, Normal S2, No Murmurs Lungs: Clear to Auscultation, Normal Air Movement Abdomen: Normal Bowel Sounds, Soft, No Tenderness, No Masses Extremities: No Clubbing, No Cyanosis, No Edema, Normal Pulses Current Medications: Current Medications Sig/Den Start time Last Medication Dose Route Stop Time Status Admin Buspirone HCl 5 MG BID 07/21 0900 AC PO Enoxaparin Sodium 40 MG DAILY 07/18 0900 AC 07/20 SC 0807 Fluoxetine HCl 20 MG DAILY 07/21 0900 AC PO Folic Acid 1 MG DAILY 07/18 1335 AC 07/20 PO 0808 Hydrochlorothiazide 25 MG DAILY 07/18 1334 AC 07/20 PO 0808 Labetalol HCl 200 MG BID 07/18 2100 AC 07/20 PO 2210 Lorazepam 1 MG Q12 07/21 2100 AC PO Lorazepam 1 MG Q8 07/20 1400 DC 07/21 PO 0626 Lorazepam 0 Q1P PRN 07/17 1830 AC 07/19 IV 0546 Losartan Potassium 50 MG DAILY 07/18 0900 AC 07/20 PO 0808 Multivitamins 1 TAB DAILY 07/18 1334 AC 07/20 PO 0807 Nifedipine 30 MG DAILY 07/19 0900 AC 07/20 PO 0808 Nystatin 1 AMBAR BID 07/18 1113 AC 07/20 TOP 2208 Omeprazole 40 MG DAILY AC 07/17 1838 AC 05/18 PO 0625 Patient Medication 1 ED ONE ONE 07/20 1645 DC 07/20 Teaching ED 07/20 1646 1658 Thiamine HCl 100 MG DAILY 07/18 1334 AC 07/20 PO 0808 Trazodone HCl 100 MG QPM 07/17 2200 AC 07/20 PO 2210 Triamcinolone 1 AMBAR TID 07/17 2108 AC 07/20 Acetonide TOP 2207 Venlafaxine HCl 37.5 MG DAILY 07/21 0900 CAN PO Venlafaxine HCl 50 MG DAILY 07/18 0900 DC 07/20 PO 0808 Assessment/Plan Assessment: 51 year old male with PMH significant for HTN, psoriasis, and EtOH dependence presents for hypertensive urgency and tachycardia in the setting of alcohol withdrawal. Hypertension and tachycardia: Confounded by acute EtOH withdrawal Both improved on new medication regimen Blood pressure improved to 120s systolic on current regimen Continue labetalol 200mg po bid, nifedipine 30mg, losartan 50mg, hctz 25mg Serial troponins and EKGs negative for myocardial ischemia TSH wnl Cardiology consultation with Dr. Weston Echocardiogram LVEF 70% impaired relaxation, mild LVH, mild LA enlargement Will need exercise stress test for risk stratification Alcohol withdrawal: Ativan reduced to 1mg q12h standing dose Ativan prn CIWA protocol Social work consultation for aftercare Psoriasis: Continue triamcinolone cream Anxiety: Was on effexor but could contribute to tachycardia and hypertension Psychiatry recommended discontinuation and addition of prozac 20mg and buspar 5 bid Goal to increase buspar prior to discharge if no side effects Will follow up with psychiatry Continue trazodone PO PPI Heart healthy diet DVT ppx-lovenox 40mg subcutaneous daily Full code Anticipated discharge tomorrow Problem List: 1. ETOH abuse 2. Alcohol withdrawal 3. Tachycardia 4. Hypertensive urgency 5. Depression, major Pain Ratin Pain Location: n/a Pain Goal: Pain 4 or less Pain Plan: prn Tomorrow's Labs & Rationales: none, discharge
[2017-07-21 14:23] VITALS: BP 108/62
[2017-07-21] MEDS ORDERED: NIFEDIPINE ER30 M2 PO (15:13)
[2017-07-21] MEDS ORDERED: BUSPIRONE HCL15 M1 PO (15:13)
[2017-07-21] MEDS ORDERED: HYDROCHLOROTHIA25 M1 PO (15:13)
[2017-07-21] MEDS ORDERED: PROZAC20 M2 PO (15:13)
[2017-07-21] MEDS ORDERED: LABETALOL HCL200 M1 PO (15:13)
--- NOTE | 2017-07-21 15:15 | Patient Discharge Instructions ---
Discharge Instructions General Discharge Information You were seen/treated for: alcohol withdrawal High blood pressure and fast heart rate Anxiety Special Instructions: All your blood pressure medications were recently changed. You will need follow up to monitor your blood pressure and adjust medications if needed. Your anxiety medications were also changed from effexor to buspar and prozac. You will psychiatric follow up. Acute Coronary Syndrome Inclusion Criteria At DC or during hospital stay patient has or had the following: ACS DIAGNOSIS No Discharge Core Measures Meds if any: Prescribed or Continued at Discharge Meds if any: NOT Prescribed or Continued at Discharge Congestive Heart Failure Inclusion Criteria At DC or during hospital stay patient has or had the following: CHF DIAGNOSIS No Discharge Core Measures Meds if any: Prescribed or Continued at Discharge Meds if any: NOT Prescribed or Continued at Discharge Cerebrovascular accident Inclusion Criteria At DC or during hospital stay patient has or had the following: CVA/TIA Diagnosis No Discharge Core Measures Meds if any: Prescribed or Continued at Discharge Meds if any: NOT Prescribed or Continued at Discharge Venous thromboembolism Inclusion Criteria VTE Diagnosis No VTE Type NONE VTE Confirmed by (Test) NONE Discharge Core Measures - Per Current guidelines, there needs to be overlap - treatment for the first 5 days of Warfarin therapy. - If discharged on Warfarin prior to 5 days of - overlap therapy, the patient will need to be - assessed for post discharge needs including - *Post discharge parental anticoagulation - *Warfarin and/or parental anticoagulation education - *Follow up date to check INR post discharge At least 5 days overlap therapy as Inpatient No Meds if any: Prescribed or Continued at Discharge Note: Overlap Therapy is Warfarin and Anticoagulant Meds if any: NOT Prescribed or Continued at Discharge
--- NOTE | 2017-07-21 15:34 | Discharge Summary ---
Hospital Course Allergies: Coded Allergies: No Known Allergies (07/17/17) Discharge Instructions Medications at Discharge Discharge Medications: Stop taking the following medications: Venlafaxine HCl (Venlafaxine HCl) 50 MG TABLET ORAL DAILY Metoprolol Tartrate (Lopressor) 50 MG TABLET ORAL TWICE DAILY Amlodipine Besylate (Norvasc) 5 MG TABLET ORAL DAILY Continue taking these medications: Losartan Potassium (Cozaar) 50 MG TABLET 1 Tablet ORAL DAILY Qty = 30 Trazodone HCl (Trazodone HCl) 100 MG TABLET 1 Tablet ORAL Every night Pantoprazole Sodium (Pantoprazole Sodium) 40 MG TABLET.DR 1 Tablet ORAL DAILY Triamcinolone Acetonide (Triamcinolone Acetonide) 0.1 % OINT...G. 1 Application On the skin THREE TIMES DAILY Instructions: apply to affected area(s) Start taking the following new medications: Fluoxetine HCl (Prozac) 20 MG CAPSULE 1 Capsule ORAL DAILY Qty = 30 No Refills Buspirone HCl (Buspirone HCl) 15 MG TABLET 1 Tablet ORAL TWICE DAILY Qty = 60 No Refills Labetalol HCl (Labetalol HCl) 200 MG TABLET 1 Tablet ORAL TWICE DAILY Qty = 60 No Refills Hydrochlorothiazide (Hydrochlorothiazide) 25 MG TABLET 1 Tablet ORAL DAILY Qty = 30 No Refills Nifedipine (Nifedipine ER) 30 MG TAB.ER.24 1 Tablet ORAL DAILY Qty = 30 No Refills
[2017-07-21 22:09] VITALS: BP 118/78
[2017-07-22 06:28] VITALS: BP 112/68
--- NOTE | 2017-07-22 09:53 | PN- Housestaff ---
See Addendum Subjective Follow-up For: Hypertension tachycardia ethanol withdrawal Tele-Events Since Last Visit: off tele Subjective: Seen and examined. Feels well. Ready to go home today. Offers no complaints. Review of Systems Constitutional: Reports: no symptoms. Objective Last 24 Hrs of Vital Signs/I&O Vital Signs Date Time Temp Pulse Resp B/P B/P Pulse O2 O2 Flow FiO2 Mean Ox Delivery Rate 07/22 1002 124/80 07/22 1001 124/80 07/22 1001 124/80 07/22 0628 100.0 99 16 112/68 96 Room Air 07/21 2209 99.5 94 18 118/78 93 07/22 2011 100 138/70 07/21 1423 98.8 92 20 108/62 94 Intake & Output 07/22 1600 07/22 0800 07/22 0000 Intake Total 400 480 300 Output Total Balance 400 480 300 Intake, Oral 400 480 300 Output, Urine Patient 227 lb Weight Physical Exam General Appearance: Alert, Oriented X3, Cooperative, No Acute Distress Skin: No Rashes, No Breakdown Skin Temp/Moisture Exam: Warm/Dry Sepsis Skin Exam (color): Normal for Ethnicity HEENT: Atraumatic Cardiovascular: Normal S1, Normal S2, No Murmurs Lungs: Clear to Auscultation, Normal Air Movement Abdomen: Soft, No Tenderness Neurological: Normal Speech Extremities: trace b/l lower extremity edema Assessment/Plan Assessment: 51 year old male with PMH significant for HTN, psoriasis, and EtOH dependence presents for hypertensive urgency and tachycardia in the setting of alcohol withdrawal. Hypertension and tachycardia: Was likely confounded by acute EtOH withdrawal Continue labetalol 200mg po bid, nifedipine 30mg, losartan 50mg, hctz 25mg Serial troponins and EKGs were negative for myocardial ischemia TSH wnl Cardiology input appreciated Echocardiogram LVEF 70% impaired relaxation, mild LVH, mild LA enlargement Will need exercise stress test for risk stratification as outpatient Stable for discharge today Alcohol withdrawal: off Ativan Psoriasis: Continue triamcinolone cream Anxiety: Was on effexor but could contribute to tachycardia and hypertension Psychiatry recommended discontinuation and addition of prozac 20mg and buspar 5 bid Will follow up with psychiatry Continue trazodone PO PPI Heart healthy diet DVT ppx-lovenox 40mg subcutaneous daily Full code Problem List: 1. Hypertensive urgency Pain Ratin Pain Location: none Pain Goal: Remain pain free Pain Plan: none Tomorrow's Labs & Rationales: none
[2017-07-22 10:02] VITALS: BP 124/80
[2017-07-22] MEDS ORDERED: HYDROCHLOROTHIA25 M1 PO (12:12)
[2017-07-22] MEDS ORDERED: BUSPIRONE HCL15 M1 PO (12:12)
[2017-07-22] MEDS ORDERED: LABETALOL HCL200 M1 PO (12:12)
[2017-07-22] MEDS ORDERED: NIFEDIPINE ER30 M2 PO (12:12)
[2017-07-22] MEDS ORDERED: PROZAC20 M2 PO (12:12)
== END 2017-07-22 11:35 | DRG 199 ==
LOC: ERH 10:49 → 1NO 17:49 → ERHI 17:49 → ENRESERV 18:14 → ENTRNSPT 20:13 → EDTRNSPTSTS 20:30 → 1NO 20:33 → CMPTRNSPT 20:52 → 1NO 07-18 08:35 → ENPENDDIS 07-22 11:12 → 1NO 07-22 11:35
PROVIDERS: Physician Assistant Medical
DX: I16.0 Hypertensive urgency (principal); F10.239 Alcohol dependence with withdrawal, unspecified; Y90.0 Blood alcohol level of less than 20 mg/100 ml; L40.9 Psoriasis, unspecified; R00.0 Tachycardia, unspecified; K21.9 Gastro-esophageal reflux disease without esophagitis
CPT/HCPCS: 1NP; 36415; 74174; 80307; 81003; 82436; 93005; 93010; 93306; 96374; 96375; 96376; G0480; J1650; J3490